=== PATIENT | male | born 1950 | race Caucasian/White ===

== ENCOUNTER 2024-03-01 18:29 | Observation (INO) | payer MEDICARE, OTHER, SELFPAY ==
[2024-03-01] VITALS (9 sets, daily range): BP systolic 138–175; BP diastolic 54–84; PULSE 78–86; BMI 28.7
[2024-03-01 14:38] LABS: % Basophils 0.5 % (0-2); % Eosinophils 1.8 % (0-6); % Immature Granulocytes 0.3 % (0-0.5); % Lymphocytes 22.5 % (20.5-51.1); % Monocytes 14.2 % (1.7-9.3); % Neutrophils 60.7 % (42.2-75.2); Absolute Eosinophils 0.1 10^3/uL (0-0.7); Absolute Lymphocytes 1.7 10^3/uL (1.2-3.4); Absolute Monocytes 1.1 10^3/uL (0.1-0.6); Absolute Neutrophils 4.5 10^3/uL (1.4-6.5); Hematocrit 37.3 % (39.0-52.0); Hemoglobin 13.4 g/dL (13.0-18.0); Mean Corp Hgb Conc. 35.9 g/dL (33.0-37.0); Mean Corpuscular Hgb 30.8 pg (27.0-31.0); Mean Corpuscular Volume 85.7 fL (80.0-94.0); Mean Platelet Volume 10.9 fL (7.4-10.4); Nucleated Red Blood Cells % 0 % (-); Platelet Count 213 10^3/uL (130-400); Red Blood Cell Count 4.35 10^6/uL (4.70-6.10); Red Cell Dist. Width 12.6 % (11.5-14.5); White Blood Cell Count 7.4 10^3/uL (4.8-10.8)
[2024-03-01 14:42] LABS: ALT (SGPT) 31 U/L (0-50); AST (SGOT) 29 U/L (17-59); Alkaline Phosphatase 51 U/L (38-126); Blood Urea Nitrogen 19 mg/dl (9-20); Calcium 9.8 mg/dl (8.4-10.2); Carbon Dioxide 22 mmol/L (22-30); Chloride 101 mmol/L (98-107); Glucose 101 mg/dl (70-99); Potassium 4.3 mmol/L (3.5-5.1); Sodium 135 mmol/L (135-145); Total Bilirubin 0.9 mg/dl (0.2-1.3); Total Protein 7.7 g/dl (6.3-8.2); eGFR > 60.00
[2024-03-01 14:53] LABS: Troponin I < 0.012 ng/ml
--- NOTE | 2024-03-01 15:18 | ED.GENMED ---
History of Present Illness
<Sugey Mora PA-C - Last Filed: 03/01/24 23:58>
General
Chief Complaint: Chest Pain
Source: patient
Exam Limitations: none
Time Seen by Provider: 03/01/24 15:16
Nursing documentation reviewed up to this point in time: agreed with
History of Present Illness
History of Present Illness:
Patient is a 74 year old male with history CAD s/p 2 stent placements 1 year ago and hypertension presenting for evaluation of exertional chest pain and shortness of breath. Patient states that over the past 3 to 4 days he has noticed worsening
chest pain and shortness of breath with exertion. Symptoms are noticed with very short distance of exertion. At the time of the symptoms he has also noticed headache, lightheadedness, and mild blurry vision. Patient states that the headache has
been somewhat constant over the past 4 days but describes it as a gradual onset headache and not any acute onset headache. Patient denies any associated fever, chills, nausea, or vomiting.
Patient does state that the symptoms do not seem exactly similar to episode when he required stent placements.
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
Past History
<Sugey Mora PA-C - Last Filed: 03/01/24 23:58>
Past History
ED Past Medical History: CAD, GERD, HTN and Other (Prediabetic, borderline cholesterol, anxiety, obstructive sleep apnea and uses CPAP)
ED Past Surgical History: Tonsilectomy; Negative Cardiac
Social History
Tobacco: Non-smoker
Alcohol: None
Drug: None
Personal:
Living: with family
Employment: Retired
Family History
Family History: Hypertension
Review of Systems
<Sugey Mora PA-C - Last Filed: 03/01/24 23:58>
Review of Systems
Allergies reviewed?: Yes
All Other Systems: ROS reviewed and negative except as documented in HPI and ROS
Phy Exam
<Sugey Mora PA-C - Last Filed: 03/01/24 23:58>
Physical Exam
Physical Exam:
Vitals: Hypertensive, otherwise vital signs stable. Afebrile
General: Patient is well appearing, no acute distress. Nontoxic
Skin: Warm and dry, no rashes or lesions
Head: Normocephalic, atraumatic
Eyes: Sclera nonicteric. EOMs intact. No nystagmus.
Throat: Protecting airway
Neck: Normal ROM, no cervical spine tenderness, no meningismus
Cardiac: Regular rate and rhythm, no murmurs. No tenderness noted to anterior chest wall.
Pulm: Normal respiratory effort, no wheezes, rales, rhonchi heard on exam.
Abdomen: Abdomen soft. Mild diffuse abdominal tenderness without rebound tenderness or guarding.
Extremities: No evidence of cyanosis or edema. Great distal pulses
Neuro: AAOx3. CN II-XII intact. No focal neurologic deficits.
Psychiatric: Normal affect.
Scores
<Sugey Mora PA-C - Last Filed: 03/01/24 23:58>
Heart Score for Chest Pain Patients
STEMI patient?: No
History: Moderately Suspicious
ECG: Normal
Age: >/= 65 years
Risk Factors: >/= 3 Risk Factors or History of CAD
Troponin: </= Normal Limit
Heart Score for Chest Pain Patients: 5
Heart Score Risk: 20.3% MACE over next 6 weeks
Course
<Sugey Mora PA-C - Last Filed: 03/01/24 23:58>
Orders/Labs/Results
Orders:
Orders
03/01/24 Breakfast
Sodium, 2 Gram
At Your Request: Full Participation
Low Sodium: Cholesterol Lowering
03/01/24 13:57
Electrocardiogram (*1) Urgent
Reason for Study: Chest Pain
EKG- Treatment ONCE
03/01/24 14:12
Complete Blood Count/With Diff Urgent
Comprehensive Metabolic Panel Urgent
Troponin I Urgent
03/01/24 15:41
0.9% Sodium Chloride 1000 ml [Nss] 1,000 ml IV BOLUS
Acetaminophen [Tylenol] 650 mg PO NOW STA
03/01/24 15:42
CR Chest - 2 Views Urgent
Comment:
Reason For Exam: exertional SOB
03/01/24 17:13
Troponin I Urgent
03/01/24 17:15
Electrocardiogram (*1) Urgent
Reason for Study: Chest Pain
03/01/24 18:08
Admit/Transfer Patient As Directed
Co-Sign Provider:
Level of Care: Observation services
Assign to:: Telemetry
Physician / Group: Mike
Diagnosis: Unstable Angina
Reason for Telemetry: Chest Pain syndromes
Date to Stop Telemetry: 03/03/24
Time to Stop Telemetry: 11:00
03/01/24 18:09
Code Status As Directed
Resuscitation Status: Full Code
03/01/24 20:02
Acetaminophen [Tylenol] 650 mg PO Q4HPRN PRN
Amlodipine [Norvasc] 5 mg PO BID
HydrALAZINE [Apresoline] 50 mg PO BID
Nitroglycerin Sublingual [Nitrostat (Sublingual)] 0.4 mg SL [id number] PRN
03/01/24 20:02
Echo 2D MMode Color/Doppler Routine
Reason for Study: chest pain, lower ext edema
Cardiology Consult: Che Washington
CARDIOLOGY CONSULT Routine
Consulting Provider: Che Washington
Was physician already notified: Yes
Activity As Directed
Activity Level: Out of Bed-Early Mobility
With Assistance
I&O [Intake/ Output] As Directed
Frequency: q12h
Vital Signs As Directed
Frequency: Per unit guidelines
Weight As Directed
Frequency: Daily
DX Deep Vein Thrombosis Video Routine
03/01/24 22:00
Tamsulosin [Flomax] 0.4 mg PO HS
03/01/24 22:17
Troponin I Routine
03/02/24 Breakfast
NPO
Allow oral meds: Yes
Allow clear liquids: 4hrs prior to procedure
NPO with Ice Chips: Yes
Comment: may have unrestricted clear liquid up to 4 hrs prior to scheduled procedure
Basic Metabolic Panel IN AM
Complete Blood Count/No Diff IN AM
Hgba1c [Glycohemoglobin (HgbA1c)] IN AM
Lipid Profile [Cardiovascular Evaluation] IN AM
Magnesium IN AM
03/02/24 08:00
Aspirin Chewable [Low Strength Aspirin] 81 mg PO DAILY
Eplerenone [Inspra] 25 mg PO DAILY
Famotidine [Pepcid] 40 mg PO DAILY
Linaclotide [Linzess] 145 mcg PO DAILY
Pantoprazole [Protonix] 40 mg PO DAILY
Valsartan [Diovan] 320 mg PO DAILY
03/02/24 18:00
Atorvastatin [Lipitor] 20 mg PO QPM
Enoxaparin Sodium [Lovenox] 40 mg SC QPM
03/03/24 11:00
DC Protocol for Telemetry ONCE
Abnormal Lab Results
03/01/24
14:12
RBC 4.35 L 10^6/uL
(4.70-6.10)
Hct 37.3 L %
(39.0-52.0)
MPV 10.9 H fL
(7.4-10.4)
Absolute Monos (auto) 1.1 H 10^3/uL
(0.1-0.6)
Monocytes % 14.2 H %
(1.7-9.3)
Glucose 101 H mg/dl
(70-99)
03/01/24 14:12
03/01/24 14:12
Vital Signs
Initial and Last Documented VS:
Initial Vital Signs
Temp Pulse Resp BP Pulse Ox
97.8 F 88 16 175/74 98
03/01/24 14:04 03/01/24 14:04 03/01/24 14:04 03/01/24 14:04 03/01/24 14:04
Last Documented Vital Signs
Temp Pulse Resp BP Pulse Ox
97.9 F 77 18 138/54 96
03/01/24 23:38 03/01/24 23:38 03/01/24 23:38 03/01/24 23:38 03/01/24 23:38
Eufemialt;Gabino Valdez, - Last Filed: 03/01/24 19:12>
Orders/Labs/Results
Orders:
Orders
03/01/24 Breakfast
Sodium, 2 Gram
At Your Request: Full Participation
Low Sodium: Cholesterol Lowering
03/01/24 13:57
Electrocardiogram (*1) Urgent
Reason for Study: Chest Pain
EKG- Treatment ONCE
03/01/24 14:12
Complete Blood Count/With Diff Urgent
Comprehensive Metabolic Panel Urgent
Troponin I Urgent
03/01/24 15:41
0.9% Sodium Chloride 1000 ml [Nss] 1,000 ml IV BOLUS
Acetaminophen [Tylenol] 650 mg PO NOW STA
03/01/24 15:42
CR Chest - 2 Views Urgent
Comment:
Reason For Exam: exertional SOB
03/01/24 17:13
Troponin I Urgent
03/01/24 17:15
Electrocardiogram (*1) Urgent
Reason for Study: Chest Pain
03/01/24 18:08
Admit/Transfer Patient As Directed
Co-Sign Provider:
Level of Care: Observation services
Assign to:: Telemetry
Physician / Group: Mike
Diagnosis: Unstable Angina
Reason for Telemetry: Chest Pain syndromes
Date to Stop Telemetry: 03/03/24
Time to Stop Telemetry: 11:00
03/01/24 18:09
Code Status As Directed
Resuscitation Status: Full Code
03/01/24 20:02
Acetaminophen [Tylenol] 650 mg PO Q4HPRN PRN
Amlodipine [Norvasc] 5 mg PO BID
HydrALAZINE [Apresoline] 50 mg PO BID
Nitroglycerin Sublingual [Nitrostat (Sublingual)] 0.4 mg SL [id number] PRN
03/01/24 20:02
Echo 2D MMode Color/Doppler Routine
Reason for Study: chest pain, lower ext edema
Cardiology Consult: Che Washington
CARDIOLOGY CONSULT Routine
Consulting Provider: Che Washington
Was physician already notified: Yes
Activity As Directed
Activity Level: Out of Bed-Early Mobility
With Assistance
I&O [Intake/ Output] As Directed
Frequency: q12h
Vital Signs As Directed
Frequency: Per unit guidelines
Weight As Directed
Frequency: Daily
DX Deep Vein Thrombosis Video Routine
03/01/24 22:00
Tamsulosin [Flomax] 0.4 mg PO HS
03/01/24 22:17
Troponin I Routine
03/02/24 Breakfast
NPO
Allow oral meds: Yes
Allow clear liquids: 4hrs prior to procedure
NPO with Ice Chips: Yes
Comment: may have unrestricted clear liquid up to 4 hrs prior to scheduled procedure
Basic Metabolic Panel IN AM
Complete Blood Count/No Diff IN AM
Hgba1c [Glycohemoglobin (HgbA1c)] IN AM
Lipid Profile [Cardiovascular Evaluation] IN AM
Magnesium IN AM
03/02/24 08:00
Aspirin Chewable [Low Strength Aspirin] 81 mg PO DAILY
Eplerenone [Inspra] 25 mg PO DAILY
Famotidine [Pepcid] 40 mg PO DAILY
Linaclotide [Linzess] 145 mcg PO DAILY
Pantoprazole [Protonix] 40 mg PO DAILY
Valsartan [Diovan] 320 mg PO DAILY
03/02/24 18:00
Atorvastatin [Lipitor] 20 mg PO QPM
Enoxaparin Sodium [Lovenox] 40 mg SC QPM
03/03/24 11:00
DC Protocol for Telemetry ONCE
Abnormal Lab Results
03/01/24
14:12
RBC 4.35 L 10^6/uL
(4.70-6.10)
Hct 37.3 L %
(39.0-52.0)
MPV 10.9 H fL
(7.4-10.4)
Absolute Monos (auto) 1.1 H 10^3/uL
(0.1-0.6)
Monocytes % 14.2 H %
(1.7-9.3)
Glucose 101 H mg/dl
(70-99)
03/01/24 14:12
03/01/24 14:12
Vital Signs
Initial and Last Documented VS:
Initial Vital Signs
Temp Pulse Resp BP Pulse Ox
97.8 F 88 16 175/74 98
03/01/24 14:04 03/01/24 14:04 03/01/24 14:04 03/01/24 14:04 03/01/24 14:04
Last Documented Vital Signs
Temp Pulse Resp BP Pulse Ox
97.9 F 77 18 138/54 96
03/01/24 23:38 03/01/24 23:38 03/01/24 23:38 03/01/24 23:38 03/01/24 23:38
<Sugey Mora PA-C - Last Filed: 03/01/24 23:58>
MDM/Problems Addressed
Differential Diagnosis Includes:
Not limited to: GERD, unstable angina, NSTEMI, STEMI, COPD, CHF
MDM/Problems Addressed:
74-year-old male with history hypertension, CAD s/p stent placement presenting with exertional chest pain and shortness of breath over the past 3 to 4 days. Symptoms noticed with very short distances. Mild associated headache, blurry vision,
lightheadedness. Patient's vital signs are stable upon arrival to the emergency department, although mildly hypertensive. Physical exam as above. Patient is well-appearing, in no apparent distress. Heart regular rate and rhythm, lungs clear
bilaterally. He does have some mild diffuse abdominal tenderness which she is following with a GI doctor�he had a CT performed yesterday at [facility] try to obtain results. No edema of lower legs. No obvious bruises or rashes. Labs
obtained in triage noted. No clinically significant abnormalities. Initial troponin is negative. Patient does report most recent bout of symptoms while he was in the waiting room getting up to go to the bathroom. Will repeat troponin to ensure
not rising. EKG shows no acute ischemic changes. Chest x-ray without any signs of acute cardiopulmonary process.
Although workup here has been mostly negative at this point�given patient's cardiac history and stent placement 1 year ago symptoms are concerning for unstable angina. Did discuss with cardiology who recommended admission to hospital with
cardiology consult. Discussed with hospitalist. Patient be admitted for further workup.
Chronic conditions affecting care:
CAD, hypertension, GERD
Acute Exacerbation and/or Progression of Chronic Illness:
Unstable angina
<Sugey Mora PA-C - Last Filed: 03/01/24 23:58>
*Radiology
Radiology exam reviewed: preliminary read by ED provider and radiology read reviewed
*Pulse Oximetry
Patient hypoxic: no
*EKG
Interpreted by ED Provider?: Yes
EKG Intrepretation Date: 03/01/24
Interpretation: normal
Comparison EKG: changes noted
Heart Rate: 88
Rate: normal
Rhythm: sinus
QRS Pattern: normal QRS
Ischemia: no ischemia
*Institute Director Interpretation
Rate: normal
Interpretation: normal
Heart Rate: 84
Rhythm: sinus
*Critical Care Note
Total Time (30-74mins, 75-104mins- exclusive of procedures): Not Applicable
<Sugey Mora PA-C - Last Filed: 03/01/24 23:58>
Patient Management
Discussion with other providers: Hospitalist and Area Development Manager (Cardiology)
Escalation/DeEscalation of care consider admission/obs:
Admission for further workup
ED Attending Note
<Sugey Mora PA-C - Last Filed: 03/01/24 23:58>
-
Portions of this chart may have been created with voice recognition software.� Occasional wrong word or��sound alike� substitutions may have occurred due to the inherent limitations of voice recognition software.
<Gabino Valedz, - Last Filed: 03/01/24 19:12>
ED Attending Note
Patient seen and examined by attending physician: Yes
I performed the substantive portion of visit, reviewed & personally made and approve the management plan that is documented in note by myself or LIANNE.: Yes
ED Attending Note:
I agree with Joann's note
Patient presents complaining of chest pain. Pain occurs with minimal exertion. He does have history of coronary artery disease. Patient had a cardiac catheterization with stent 1 year ago for a NSTEMI. Patient was in his usual state of health
until about 3 to 4 days ago when he began having pain with exertion. Pain is not the same as what he experienced with his [place] but similar. He describes it as a person sitting on his chest. He does have shortness of breath with it. Last episode of
chest pain was in the waiting room when he walked to the bathroom a few feet. He has had episodes of pain without exertion.
General: Awake, Alert, Oriented X3. No acute distress.
Vitals: unremarkable
Head: Atraumatic
Eyes: Pupils equal, EOMI
Throat: Airway intact, no exudates
Neck: Trachea midline
Lungs: Clear and equal b/l
Heart: Regular rate, no murmurs
Abd: Soft, Nontender, No pulsatile mass
Skin: Warm, dry, no rash
Extremities: pulses equal b/l, no edema
EKG: No acute ischemic changes.
Patient's presentation is concerning for unstable angina. Joann discussed the patient's presentation with cardiology. Second troponin pending. Plan is to admit with cardiology consult
Discharge Plan
Departure
Patient Disposition: Admit
Date of Disposition: 03/01/24
Time of Disposition: 17:19
Presentation/result/management discussed w/ accepting MD/DO: Hospitalist
Discharge Problem:
Angina pectoris, unstable
Interventions
Interventions:
*Risk Screen - Suicide Last Done: 03/01/24 20:58
*General Assessment Last Done: 03/01/24 15:31
*Neglect/Abuse Screening Last Done: 03/01/24 15:31
ED- Fall Risk Assessment Last Done: 03/01/24 15:31
*ED COVID-19 Vaccine History Last Done: 03/01/24 20:58
*Nursing Disposition Last Done: 03/01/24 21:02
ED- Cardiac Assessment Last Done: 03/01/24 15:31
Discharge Date and Time
Discharge Date/Time: 03/01/24 21:02
[2024-03-01] MEDS: TYLENOL 650 MG PO (16:19)
[2024-03-01] MEDS: NSS 1000 IV (16:20)
--- NOTE | 2024-03-01 16:56 | CON.CAR ---
Addendum entered and electronically signed by Che Washington DO 03/01/24 18:57:
I saw and examined the patient.
[facility] [employer]'s note was reviewed and I agree with the note.
Comment: Patient seen and examined in ED bed 20. He is well-known to Dr. Yonis Horne, [facility] cardiology. Lupillo is a 74-year-old gentleman with history of hypertension requiring multi agent regimen, type 2 diabetes mellitus, dyslipidemia, obstructive
sleep apnea, and known coronary artery disease. He also has a history of BPH. He has had PCI to his RCA x 2 in February 2023 in the setting of a non-STEMI. He reports new left-sided chest pain starting over the weekend with minimal exertion which has
progressively worsened throughout the week. He reports having chest pain walking from triage to ER hospital bed as well as for current chest pain ambulating to the restroom. Currently chest pain-free. Home systolic blood pressures reported in the
range of 130 to 140 mmHg. He denies recent interruption of aspirin and is compliant with his medications. No recent URI symptoms or cough. He has had several months of abdominal distention, constipation and abdominal pain followed by GI at .
[facility] and had a CT of the abdomen pelvis yesterday. Results of the study are unknown and I have asked the ED to obtain results for our review.
General: No acute distress, AAOX3
Neck: Negative JVD
Heart: Regular, Negative S3 positive S1/S2, Negative S4, No murmur
Lungs: CTA b/l, negative wheezes/rales/rhonchi
Abd: Positive BS, NT/ND, neg rebound/rigidity/guarding
Ext: Negative cyanosis/clubbing/edema
Neuro: nonfocal
Plan:
Chest pain concerning for angina with known coronary artery disease
-Discussed case with Dr. Horne who says patient has ongoing chronic episodes of chest pain.
-Twelve-lead EKG nonischemic
-Cardiac troponin so far undetectable
-Will continue current medical therapy including aspirin. If recurrent chest pain or abnormal cardiac troponin we will start IV heparin
-N.p.o. after midnight. If troponin remains undetectable we will proceed with exercise nuclear stress test. If troponin abnormal we will proceed with cardiac catheterization with Dr. Horne
-Repeat 2D echocardiogram in the morning
Hypertension, uncontrolled
-Will add beta-florencia to current medical therapy and if blood pressures remain elevated consider adding Imdur or Ranexa for possible microvascular disease
-Goal normotension
Type 2 diabetes mellitus
-Goal normoglycemia
-Consider the addition of Jardiance
-Check hemoglobin A1c
Dyslipidemia
-Check fasting lipid profile
Obstructive sleep apnea on CPAP�continue
Abdominal pain constipation with normal hemoglobin
-Follows with [facility] with plan for colonoscopy in the next couple of months. Recent endoscopy reportedly okay, unconfirmed
-Will obtain CT abdomen pelvis recently done at [facility] yesterday for review
Case discussed with Dr. Horne
Will follow with you
Original Note:
Consultation
Consultation Request
Date/Time Consultation Performed: 03/01/24
Requesting Provider: Sugey Mora PA-C
Performing Provider: Glenda Crawford PA-C for Dr. Washington
Reason for Consultation: CP
Medical History
-
Chief Complaint: CP
History of Present Illness:
Patient is a 73 yo M with PMH of HTN, GERD, prediabetes, HOSSEIN. Followed by Dr. Horne of [facility]IAT[facility]. He had exertional chest pressure and USA resulting in RCA PCI x2 03/01/23. He then presented back to 03/05 with recurrent CP. Underwent Lexiscan MIBI
03/07/2023 without significant ischemia. It was felt that his symptoms of chest pain may have been related to marked hypertension. Patient reports chest discomfort and dyspnea on exertion over the last 3 to 4 days as well as associated headache and
lightheadedness. Symptoms somewhat different than prior symptoms resulting in stent placement in 2022. Initial trop negative. Cardiology consulted for evaluation.
PMH:
RCA PCI x2 03/01/23
HTN
GERD
prediabetes
HOSSEIN
Family history of CAD
Former smoker
Past Medical History
Past Medical History: Other (in HPI)
Social History
Tobacco: Former Smoker
Alcohol: Occasional
Employment: Retired
Family History
Family History: CAD (in father)
Allergies / Home Medications
Allergy/AdvReac Type Severity Reaction Status Date / Time
No Known Allergies Allergy Verified 03/01/24 14:07
�Medication �Instructions �Recorded �Confirmed �Type
amlodipine 5 mg tablet 5 mg PO BID Blood Pressure 02/28/23 03/05/23 History
eplerenone 25 mg tablet 25 mg PO DAILY Lung/Breathing 02/28/23 03/05/23 History
Issues
famotidine 40 mg tablet 40 mg PO DAILY Gastrointestinal 02/28/23 03/05/23 History
Issue
pantoprazole 40 mg tablet,delayed 40 mg PO DAILY Gastrointestinal 02/28/23 03/05/23 History
release (Protonix) Issue ##0
valsartan 320 mg tablet 320 mg PO DAILY Blood Pressure 02/28/23 03/05/23 History
aspirin 81 mg chewable tablet 81 mg PO DAILY 30 days #30 tabs 03/02/23 03/05/23 Rx
atorvastatin 20 mg tablet 20 mg PO QPM #30 tabs 03/02/23 03/05/23 Rx
clopidogrel 75 mg tablet 75 mg PO DAILY #30 tabs 03/02/23 03/05/23 Rx
hydralazine 50 mg tablet 50 mg PO BID #60 tabs 03/02/23 03/05/23 Rx
Focus Factor 1 cap PO DAILY 03/05/23 03/05/23 History
lutein 20 mg capsule 20 mg PO DAILY Supplement 03/05/23 03/05/23 History
milk thistle 175 mg tablet 175 mg PO DAILY Supplement 03/05/23 03/05/23 History
omega 7-svh-kty-fish oil 1,000 mg 1 cap PO DAILY Supplement 03/05/23 03/05/23 History
(120 mg-180 mg) capsule (Fish Oil)
pantothenic acid (vit B5) 250 mg 250 mg PO DAILY Supplement 03/05/23 03/05/23 History
tablet
therapeutic multivitamin 1 tab PO DAILY Supplement 03/05/23 03/05/23 History
vitamin B complex 1 cap PO DAILY Supplement 03/05/23 03/05/23 History
metoprolol succinate 25 mg 25 mg PO BID #60 tabs 03/07/23 Rx
tablet,extended release 24 hr
Review of Systems
-
History Source: Patient
All other systems: Negative unless noted
Physical Exam
Vital Signs
Temp Pulse Resp BP Pulse Ox
97.8 F 85 24 159/84 97
03/01/24 14:04 03/01/24 15:30 03/01/24 15:30 03/01/24 15:27 03/01/24 15:30
Lab Results
03/01/24 14:12
03/01/24 14:12
Troponin I < 0.012 ng/ml 03/01/24 14:12
Impression / Plan
-
Primary Polisher And Sander: Dr. Horne of PSY[facility]IAT[facility]
Assessment:
Presentation with CP
Negative trop x1
CAD s/p RCA PCI x2 03/01/23
HTN
GERD
prediabetes
HOSSEIN
Family history of CAD
Former smoker
ECHO 03/05/2023: EF 70 to 75%, mild concentric LVH, hyperdynamic LV, mildly dilated right atrium, mild TR, PAP 42 mmHg
Plan:
-Patient presents with chest pain in setting of prior CAD with RCA PCI x 2 02/2023.
-Troponin negative x 1. Trend to peak
-EKG sinus rhythm without acute ischemic changes
-Obtain records from PSYCHIATRIC in a.m.
-If trops remain negative, would consider for nuclear stress testing in a.m. last stress test from 02/2023 was without evidence of acute ischemia. if trops become positive, consider for cath in AM
-last echo with results as above
-likely needs improved BP control, uptitrate as able
Data Reviewed
-
EKG: Tracing Personally Visualized and interpreted
Medical Tests (Nuc Med, Echo etc): Report Reviewed by me
Labs: Labs Reviewed by me
Old Records: Reviewed
[2024-03-01 17:48] LABS: Troponin I < 0.012 ng/ml
--- NOTE | 2024-03-01 18:08 | HPS.HSE ---
Family Physician
-
Family Physician: Kamari Robles
Chief Complaint
-
Chest Pain
History of Present Illness
This is a 74 year old male with past medical history of coronary artery disease, hypertension, hyperlipidemia and prediabetes who presents to the emergency department with chest pain, dizziness, and mild shortness of breath. The patient reports his
symptoms started 3 months ago intermittently but notes that as time passed, his symptoms have gotten worse. He notes that he started experiencing worsened chest pain with exertion, dyspnea, dizziness, and lightheadedness this past week. He reports
his symptoms were much worse today including difficulty concentrating, blurry vision, and headache, prompting him to present to the emergency department today. The patient states this episode was similar to when he had 2 stents placed 02/2023. He
admits to a baseline level of chest discomfort that he rates 3/10 but notes that with exertion, his chest pain is 9-10/10. He denies fever, sweats, and chills.
Medical History
Past Medical History
Past Medical History: Reports Other
Additional Past Medical History:
Coronary Artery Disease s/p Stent in February 2023
Essential Hypertension
Hyperlipidemia
Diabetes Mellitus, Type II
Anxiety
GERD
BPH
Obstructive Sleep Apnea
Past Surgical History: Reports None
Social History
Tobacco: Former Smoker
Family History
Family History: Not pertinent
Allergies / Home Medications
Allergies reflects when Allergies were last updated in [facility].
Home Medications with original date entered in [facility]
Allergy/Medication List:
Allergies
Allergy/AdvReac Type Severity Reaction Status Date / Time
No Known Allergies Allergy Verified 03/01/24 14:07
Home Medications
amlodipine 5 mg tablet 5 mg PO BID Blood Pressure 02/28/23
eplerenone 25 mg tablet 25 mg PO DAILY Lung/Breathing Issues 02/28/23
famotidine 40 mg tablet 40 mg PO DAILY Gastrointestinal Issue 02/28/23
pantoprazole 40 mg tablet,delayed release (Protonix) 40 mg PO DAILY Gastrointestinal Issue ##0 02/28/23
valsartan 320 mg tablet 320 mg PO DAILY Blood Pressure 02/28/23
aspirin 81 mg chewable tablet 81 mg PO DAILY 30 days #30 tabs 03/02/23
hydralazine 50 mg tablet 50 mg PO BID #60 tabs 03/02/23
Focus Factor 1 cap PO DAILY 03/05/23
lutein 20 mg capsule 20 mg PO DAILY Supplement 03/05/23
milk thistle 175 mg tablet 175 mg PO DAILY Supplement 03/05/23
omega 5-imo-gxm-fish oil 1,000 mg (120 mg-180 mg) capsule (Fish Oil) 1 cap PO DAILY Supplement 03/05/23
pantothenic acid (vit B5) 250 mg tablet 250 mg PO DAILY Supplement 03/05/23
therapeutic multivitamin 1 tab PO DAILY Supplement 03/05/23
vitamin B complex 1 cap PO DAILY Supplement 03/05/23
Zeaxatine 4 mg PO DAILY 03/01/24
alfuzosin 10 mg tablet,extended release 24 hr 10 mg PO HS 03/01/24
linaclotide 145 mcg capsule (Linzess) 145 mcg PO DAILY 03/01/24
Review of Systems
-
A 12 point ROS was completed and negative except as noted: Yes
Constitutional: Denies Fever or Chills
Respiratory: Denies Cough
Cardiac: Reports Chest Pain
Abdomen/GI: Denies Abdominal Pain, Nausea, Vomiting or Diarrhea
Physical Exam
Vital Signs
Vital Signs
Temp Pulse Resp BP Pulse Ox
97.8 F 76 19 151/70 96
03/01/24 14:04 03/01/24 16:30 03/01/24 16:30 03/01/24 16:00 03/01/24 16:30
Physical Exam
General: Comfortable and Conversant
HEENT: Anicteric and Moist mucous membranes
Respiratory: Clear and Non Labored Respirations
Cardiac: S1/S2 and Regular Rhythm
GI: Soft and Non Tender
Rectal: Deferred by Provider
Musculoskeletal: No Clubbing, No Cyanosis and Other (+1 pitting edema bilateral lower extremities)
Skin: Warm and Dry
Neuro: Awake, Alert, Oriented and Nonfocal/grossly intact
Psych: Calm
Laboratory Results
-
03/01/24 14:12
03/01/24 14:12
Laboratory Results
Total Bilirubin 0.9 mg/dl (0.2-1.3) 03/01/24 14:12
AST 29 U/L (17-59) 03/01/24 14:12
ALT 31 U/L (0-50) 03/01/24 14:12
Alkaline Phosphatase 51 U/L (38-126) 03/01/24 14:12
Troponin I < 0.012 ng/ml 03/01/24 17:13
Data Reviewed
-
Lab Data: Labs Reviewed by me
Impression/Plan
-
Chest Pain, suspect Unstable Angina
-Consult Cardiology
-Check third troponin later this evening
-NPO after midnight for stress test vs cath in AM
-Check Echo
-Continue aspirin
-Add SL Nitro PRN
Essential Hypertension
-Continue amlodipine, eplerenone, hydralazine and valsartan
Hyperlipidemia
-Continue atorvastatin
Diabetes Mellitus, Type II
-Patient is not on any meds as outpatient
-Check HgbA1c
GERD
-Continue famotidine and Protonix
BPH
-Continue alfuzosin
DVT proph: Lovenox
Code Status: Full Code
--- NOTE | 2024-03-01 18:14 | W.PN.UPDATE ---
Update Note
Progress Note Update
This is an addendum to the H&P written by WLILIAM Grubbs on 03/01/2024. Patient seen and examined independently with PA.
74-year-old male past medical history of CAD with stents, hypertension GERD, prediabetes, obstructive sleep apnea presenting with primarily exertional chest pressure and shortness of breath has become more progressive over the past few days also
associate with headache, lightheadedness and sweating.
Presentation concerning for possible unstable angina. Labs unremarkable. Troponin negative x 2 so far. EKG shows normal sinus rhythm. trend troponins. N.p.o. past midnight for nuclear stress testing in the morning if troponins negative versus
possible catheterization if troponins become positive. Check echo.
[2024-03-01] MEDS: NORVASC 5 MG PO (21:15)
[2024-03-01] MEDS: APRESOLINE 50 MG PO (21:15)
[2024-03-01] MEDS: TOPROL XL PO (21:15)
[2024-03-01] MEDS: FLOMAX 0.400000000000000022 MG PO (21:16)
[2024-03-01 22:45] LABS: Troponin I < 0.012 ng/ml
[2024-03-02 01:11] VITALS: BMI 29.3
--- NOTE | 2024-03-02 02:32 | PTCARENOTE ---
Pt admitted to unit from ED. Pt ambulated self with nursing staff to bed. AAXO3. Pt denies chest pain, SOB, and difficulty breathing. Pt oriented to room with call jhaveri in reach. Plan of care ongoing.
~22:30 Reported chest pain after ambulating back to bed from bathroom. Pt reports chest pain resolved. Urinal and bedside commode at bedside. Call jhaveri in reach. Plan of care ongoing.
[2024-03-02 03:19] VITALS: BP 140/60
[2024-03-02 07:00] VITALS: BP 139/63
[2024-03-02 07:32] LABS: Hematocrit 38.3 % (39.0-52.0); Hemoglobin 12.9 g/dL (13.0-18.0); Mean Corp Hgb Conc. 33.7 g/dL (33.0-37.0); Mean Corpuscular Hgb 30.4 pg (27.0-31.0); Mean Corpuscular Volume 90.3 fL (80.0-94.0); Mean Platelet Volume 10.5 fL (7.4-10.4); Platelet Count 188 10^3/uL (130-400); Red Blood Cell Count 4.24 10^6/uL (4.70-6.10); Red Cell Dist. Width 12.8 % (11.5-14.5); White Blood Cell Count 6.2 10^3/uL (4.8-10.8)
[2024-03-02 07:54] LABS: Blood Urea Nitrogen 16 mg/dl (9-20); Calcium 9.5 mg/dl (8.4-10.2); Carbon Dioxide 22 mmol/L (22-30); Chloride 105 mmol/L (98-107); Estimated Creatinine Clearance 81 ml/min; Glucose 122 mg/dl (70-99); HDL Cholesterol 48 mg/dl; LDL Cholesterol, Calculated 133 mg/dl; Magnesium 2.3 mg/dl (1.6-2.3); Potassium 4.5 mmol/L (3.5-5.1); Sodium 136 mmol/L (135-145); Total Cholesterol 207 mg/dl (50-199); Triglyceride 134 mg/dl (10-149); Very Low Density Lipoprotein 26 mg/dl (0-30); eGFR > 60.00
[2024-03-02 08:21] LABS: TSH Reflex To Free T4 2.08 uIU/ml (0.47-4.68)
[2024-03-02] MEDS: PROTONIX 40 MG PO (08:36)
[2024-03-02] MEDS: TOPROL XL 25 MG PO (08:36)
[2024-03-02] MEDS: DIOVAN 320 MG PO (08:36)
[2024-03-02] MEDS: INSPRA 25 MG PO (08:36)
[2024-03-02] MEDS: LOW STRENGTH ASPIRIN 81 MG PO (08:36)
[2024-03-02] MEDS: NORVASC 5 MG PO (08:36)
[2024-03-02] MEDS: PEPCID 40 MG PO (08:36)
[2024-03-02] MEDS: APRESOLINE 50 MG PO (08:37)
[2024-03-02 10:07] LABS: Glycohemoglobin (HgbA1c) 6.1 % (4.0-5.6)
[2024-03-02] MEDS: LEXISCAN 0.400000000000000022 MG IV (10:47)
--- NOTE | 2024-03-02 12:21 | W.PN.CARDCBS ---
Addendum entered and electronically signed by Che Washington, 03/02/24 16:45:
Patient reports fatigue with BB and has only tried lipitor with myalgias. Willing to try another statin and we also discussed option for PCSK9 inh if he does not tolerate statins. Will stop BB. He has never tried Imdur or Ranexa. Will add Imdur 30mg
daily to current medical regime.
Addendum entered and electronically signed by Che Washington, 03/02/24 15:28:
Lexiscan nuclear stress test without definite evidence of ischemia or scar. LV ejection fraction normal. 2D echocardiogram with normal biventricular size and systolic function with grade 1 diastolic dysfunction and mild pulmonary hypertension. No
significant change from February 2023.
Original Note:
Today's Communication / Plan
-
Lexiscan nuclear stress test
Impression / Plan
-
Primary Patient Appointment Coordinator: Dr. Horne of [facility]
Assessment:
Presentation with CP
Negative trop x1
CAD s/p RCA PCI x2 03/01/23
HTN
GERD
prediabetes
HOSSEIN
Family history of CAD
Former smoker
ECHO 03/05/2023: EF 70 to 75%, mild concentric LVH, hyperdynamic LV, mildly dilated right atrium, mild TR, PAP 42 mmHg
Plan:
Chest pain with known CAD
-Patient presents with chest pain in setting of prior CAD with RCA PCI x 2 02/2023.
-Troponin serially undetectable
-EKG sinus rhythm without acute ischemic changes
-Lexiscan nuclear stress test this morning
-Continue aspirin.
-Lipid profile suboptimal and not currently on lipid-lowering therapy. Total cholesterol 207, LDL 133, HDL 48, triglycerides 134. Yesterday 'no known drug allergies were reported' however now he is reporting an unknown allergy to atorvastatin.
Will discuss previous statin trials and possible reactions. If patient is unable to take statin would have him discuss PCSK9 inhibitors with his outpatient surgical services tech. Goal LDL ideally less than 70 mg/dL
-Blood pressures improved with addition of metoprolol succinate.
-Pending stress test could also consider addition of Imdur or Ranexa for possible microvascular ischemia
Prediabetes with hemoglobin A1c 6.1%
-Goal normoglycemia
-Can consider addition of Jardiance 10 mg daily
HOSSEIN on CPAP�continue
Case and plan reviewed with patient's outpatient surgical services tech, Dr. Horne.
Progress Note - Patient Appointment Coordinator
Subjective
Date of Service: March 02, 2024
Seen and examined prior to stress test. No chest pain.
Objective
Labs:
03/02/24 07:06
03/02/24 07:06
Labs
Hgb 12.9 g/dL (13.0-18.0) L 03/02/24 07:06
Hct 38.3 % (39.0-52.0) L 03/02/24 07:06
Plt Count 188 10^3/uL (130-400) 03/02/24 07:06
Sodium 136 mmol/L (135-145) 03/02/24 07:06
Potassium 4.5 mmol/L (3.5-5.1) 03/02/24 07:06
BUN 16 mg/dl (9-20) 03/02/24 07:06
Creatinine 0.8 mg/dL (0.7-1.3) 03/02/24 07:06
Glucose 122 mg/dl (70-99) H 03/02/24 07:06
Troponins
03/01/24 03/01/24 03/01/24
14:12 17:13 22:17
Troponin I < 0.012 < 0.012 < 0.012
Vital Signs and I&O:
Vital Signs
Temp Pulse Resp BP Pulse Ox
97.9 F 57 14 139/63 95
03/02/24 07:00 03/02/24 07:00 03/02/24 07:00 03/02/24 07:00 03/02/24 07:00
Vital Signs
Temp Pulse Resp BP Pulse Ox
97.9 F 57 14 139/63 95
03/02/24 07:00 03/02/24 07:00 03/02/24 07:00 03/02/24 07:00 03/02/24 07:00
Physical Exam
Physical Exam
Well appearing, no acute distress
RRR, Nl S1 and S2, no oS3 or S$, 09/17 AHSM, no rubs
Lungs are CTA b/l
Abd S/NT/ND/+ BS
Ext no c/c/e
neuro grossly non focal
[2024-03-02 12:27] VITALS: BP 167/73
[2024-03-02 15:14] VITALS: BP 134/18
--- NOTE | 2024-03-02 15:22 | W.PN.HOSP.TC ---
Today's Communication/Plan
-
Discharge if stress test negative
Assessment / Plan
Assessment / Plan
Chest Pain, suspect Unstable Angina
-Consult Cardiology
-Negative troponin
-Echo done today shows:
Normal biventricular systolic function without regional wall motion
abnormality.
Mild to moderate left ventricular hypertrophy
Left ventricular ejection fraction by volumetric assessment 60-65%
Grade 1 diastolic dysfunction with increased left atrial pressure
Mildly dilated left atrium
Trace mitral regurgitation
Trace tricuspid regurgitation
Trileaflet, mildly sclerotic aortic valve without stenosis or regurgitation
Estimated pulmonary artery pressure of 35-40 mmHg. Assuming a right atrial
pressure of 3 mmHg.
No pericardial effusion
Compared to prior study dated 03/05/2023, no significant change
Stress test done today, results pending
Follows cardiology recommended
Essential Hypertension
-Continue amlodipine, eplerenone, hydralazine and valsartan
Hyperlipidemia
-Continue atorvastatin
Diabetes Mellitus, Type II/Prediabetes
-Patient is not on any meds as outpatient
- HgbA1c 6.1
-Advised on diet and exercise
GERD
-Continue famotidine and Protonix
BPH
-Continue alfuzosin
DVT proph: Lovenox
Code Status: Full Code
Anticipated Discharge: Today
Subjective/Interval History
-
Date of Service: March 02, 2024
Patient seen and examined at bedside, denies any chest pain or shortness of breath, no abdominal pain, no nausea, no vomiting, no diarrhea or constipation.
Status post echo and stress test today
Follows cardiology recommendations.
Objective Data
-
Labs:
Laboratory Results
03/02/24
07:06
WBC 6.2
Hgb 12.9 L
Hct 38.3 L
Plt Count 188
Sodium 136
Potassium 4.5
Chloride 105
Carbon Dioxide 22
BUN 16
Creatinine 0.8
Glucose 122 H
Calcium 9.5
Vital Signs:
Vital Signs
Temp Pulse Resp BP Pulse Ox
97.3 F 67 18 134/18 98
03/02/24 15:14 03/02/24 15:14 03/02/24 15:14 03/02/24 15:14 03/02/24 15:14
Physical Exam
-
General: Well Developed and No Apparent Distress
HEENT: Normocephalic, Atraumatic and Moist Mucous Membranes
Respiratory: Clear to Auscultation
Cardiac: Regular Rhythm and S1/S2; Negative Murmur, Rub or Gallop
GI: Soft, Nontender, Nondistended and Normal Bowel Sounds; Negative Organomegaly
Rectal: Deferred by Provider
Musculoskeletal: No Clubbing, No Cyanosis and No Edema
Skin: Negative Rash
Neuro: Nonfocal/Grossly Intact
--- NOTE | 2024-03-02 15:46 | CM ---
Patient seen bedside.
IA completed.
Patient lives alone.
Independent prior to admission without assoistive devices.
patient drives.
[facility] form reviewed and signed.
PCP: Dr Robles
Pharmacy: [facility]
Plan: home no needs.
--- NOTE | 2024-03-02 16:11 | W.DCSUMMARY ---
Discharge Summary
Discharge Data
Date of Admission: 03/01/24
Date of Discharge: 03/02/24
Total time spent discharging patient (in min): 35
-
Pending Results: No
Hospital Course
Patient admitted with chest pain, negative troponin, negative stress test and normal cardiac
Will be discharged today
Chest Pain, suspect Unstable Angina
-Consult Cardiology
-Negative troponin
-Echo done today shows:
Normal biventricular systolic function without regional wall motion
abnormality.
Mild to moderate left ventricular hypertrophy
Left ventricular ejection fraction by volumetric assessment 60-65%
Grade 1 diastolic dysfunction with increased left atrial pressure
Mildly dilated left atrium
Trace mitral regurgitation
Trace tricuspid regurgitation
Trileaflet, mildly sclerotic aortic valve without stenosis or regurgitation
Estimated pulmonary artery pressure of 35-40 mmHg. Assuming a right atrial
pressure of 3 mmHg.
No pericardial effusion
Compared to prior study dated 03/05/2023, no significant change
Stress test done today, results pending
Follows cardiology recommended
Essential Hypertension
-Continue amlodipine, eplerenone, hydralazine and valsartan
Hyperlipidemia
-Continue atorvastatin
Diabetes Mellitus, Type II/Prediabetes
-Patient is not on any meds as outpatient
- HgbA1c 6.1
-Advised on diet and exercise
GERD
-Continue famotidine and Protonix
BPH
-Continue alfuzosin
DVT proph: Lovenox
Code Status: Full Code
Anticipated Discharge: Today
Discharge Plan
-
Patient Disposition: Home (Routine Discharge)
Discharge Diagnosis/Procedures: Chest pain
Diet: Diabetic, Carb Controlled
Activity: No restrictions
Driving Restrictions: As prior to admission
Referrals:
Che Washington DO [Active] - in two to three weeks
Kamari Robles MD [Family Provider] -
Prescriptions:
New
isosorbide mononitrate 30 mg Tablet Extended Release 24 Hr
30 mg PO DAILY Qty: 30 0RF
rosuvastatin 20 mg Tablet
20 mg PO QPM Qty: 30 0RF
Continued
famotidine 40 mg Tablet
40 mg PO DAILY
amlodipine 5 mg Tablet
5 mg PO BID
pantoprazole [Protonix] 40 mg Tablet,Delayed Release (Dr/Ec)
40 mg PO DAILY Qty: 0
valsartan 320 mg Tablet
320 mg PO DAILY
eplerenone 25 mg Tablet
25 mg PO DAILY
aspirin 81 mg Tablet,Chewable
81 mg PO DAILY 30 Days Qty: 30 0RF
hydralazine 50 mg Tablet
50 mg PO BID Qty: 60 0RF
milk thistle 175 mg Tablet
175 mg PO DAILY
therapeutic multivitamin Tablet
1 tab PO DAILY
pantothenic acid (vit B5) 250 mg Tablet
250 mg PO DAILY
vitamin B complex Capsule
1 cap PO DAILY
lutein 20 mg Capsule
20 mg PO DAILY
omega 7-zhy-foy-fish oil [Fish Oil] 1,000 mg (120 mg-180 mg) Capsule
1 cap PO DAILY
Focus Factor
1 cap PO DAILY
alfuzosin 10 mg tablet extended release 24 hr
10 mg PO HS
Linzess 145 mcg capsule
145 mcg PO DAILY
Zeaxatine
4 mg PO DAILY
Discharge Orders:
Discharge Patient (As Directed); Ordered 03/02/24
Ordered By: Bernadette Vasquez
Discharge Date and Time
Print Language: GUAMANIAN
[2024-03-02] MEDS: CRESTOR 20 MG PO (17:15)
== END 2024-03-02 18:02 | disposition home or self-care (01) ==
LOC: 4 WEST ACU 18:29
PROVIDERS: Physician Assistant; Physician Assistant Medical; ADMITTING PHYSICIAN Hospitalist; ATTENDING PHYSICIAN General Practice; CONSULT PHYSICIAN Internal Medicine Cardiovascular Disease; EMERGENCY PHYSICIAN Emergency Medicine; FAMILY PHYSICIAN Internal Medicine
DX: R07.9 Chest pain, unspecified (principal); I25.110 Atherosclerotic heart disease of native coronary artery with unstable angina pectoris; I10 Essential (primary) hypertension; R06.02 Shortness of breath; R42 Dizziness and giddiness; R51.9 Headache, unspecified; H53.8 Other visual disturbances; K21.9 Gastro-esophageal reflux disease without esophagitis; G47.33 Obstructive sleep apnea (adult) (pediatric); R73.03 Prediabetes; F41.9 Anxiety disorder, unspecified; R60.0 Localized edema; M79.606 Pain in leg, unspecified; E78.5 Hyperlipidemia, unspecified; N40.0 Benign prostatic hyperplasia without lower urinary tract symptoms; R07.89 Other chest pain; R06.09 Other forms of dyspnea; I25.10 Atherosclerotic heart disease of native coronary artery without angina pectoris; R94.31 Abnormal electrocardiogram [ECG] [EKG]; I51.7 Cardiomegaly; Z95.5 Presence of coronary angioplasty implant and graft; Z82.49 Family history of ischemic heart disease and other diseases of the circulatory system; Z87.891 Personal history of nicotine dependence
CPT/HCPCS: 71046; 78452; 80048; 80053; 80061; 83036; 83735; 84443; 84484; 85025; 85027; 93005; 93017; 93306; 96360; 99285; A9500; G0378; J2785

== ENCOUNTER 2024-04-04 02:58 | Inpatient (IN) | payer MEDICARE, OTHER, SELFPAY ==
[2024-04-03 22:07] VITALS: BP 180/105
[2024-04-03 22:23] VITALS: BMI 30.3
[2024-04-03 22:31] LABS: % Basophils 0.6 % (0-2); % Eosinophils 1.3 % (0-6); % Immature Granulocytes 0.3 % (0-0.5); % Lymphocytes 14.9 % (20.5-51.1); % Monocytes 10.6 % (1.7-9.3); % Neutrophils 72.3 % (42.2-75.2); Absolute Basophils 0.1 10^3/uL (0-0.2); Absolute Eosinophils 0.1 10^3/uL (0-0.7); Absolute Lymphocytes 1.6 10^3/uL (1.2-3.4); Absolute Monocytes 1.2 10^3/uL (0.1-0.6); Absolute Neutrophils 7.9 10^3/uL (1.4-6.5); Hematocrit 40.7 % (39.0-52.0); Hemoglobin 14.6 g/dL (13.0-18.0); Mean Corp Hgb Conc. 35.9 g/dL (33.0-37.0); Mean Corpuscular Hgb 30.7 pg (27.0-31.0); Mean Corpuscular Volume 85.7 fL (80.0-94.0); Mean Platelet Volume 10.9 fL (7.4-10.4); Nucleated Red Blood Cells % 0 % (-); Platelet Count 228 10^3/uL (130-400); Red Blood Cell Count 4.75 10^6/uL (4.70-6.10); Red Cell Dist. Width 12.4 % (11.5-14.5); White Blood Cell Count 10.9 10^3/uL (4.8-10.8)
[2024-04-03 22:52] LABS: ALT (SGPT) 31 U/L (0-50); AST (SGOT) 29 U/L (17-59); Albumin 5.4 g/dl (3.5-5.0); Alkaline Phosphatase 58 U/L (38-126); Blood Urea Nitrogen 22 mg/dl (9-20); Calcium 10.2 mg/dl (8.4-10.2); Carbon Dioxide 18 mmol/L (22-30); Chloride 102 mmol/L (98-107); Estimated Creatinine Clearance 66 ml/min; Glucose 127 mg/dl (70-99); Potassium 4.1 mmol/L (3.5-5.1); Sodium 136 mmol/L (135-145); Total Bilirubin 0.5 mg/dl (0.2-1.3); Total Protein 8.2 g/dl (6.3-8.2); eGFR > 60.00
[2024-04-03 22:55] LABS: NT-proBNP 57.6 pg/ml; Troponin I < 0.012 ng/ml
[2024-04-03 23:38] VITALS: BP 143/74
[2024-04-03 23:47] VITALS: BP 110/58
[2024-04-03 23:52] VITALS: BP 82/55
[2024-04-03 23:55] VITALS: BP 111/62
--- NOTE | 2024-04-03 23:57 | EDRN ---
Cardioversion performed by Dr. Urrutia. Consent obtained.
2344- 50mg of propofol given
2346- 30mg of propofol given
2347- 150J
2349- Patient back in a fib
2351- 40mg of propofol
2352- 200J
2353- 300J
2356- End per Dr. Urrutia
[2024-04-04] VITALS (19 sets, daily range): BP systolic 100–166; BP diastolic 50–91; BMI 29.1
--- NOTE | 2024-04-04 | ED.GENMED ---
History of Present Illness
General
Chief Complaint: Heart Rate Problem
Source: patient, records and spouse
Exam Limitations: none
Time Seen by Provider: 04/03/24 22:23
Nursing documentation reviewed up to this point in time: agreed with
History of Present Illness
History of Present Illness:
Patient is a 74-year-old male who presents to the emergency department complaining of tachycardia and palpitations with mild shortness of breath and chest discomfort. Patient has a known history of coronary artery disease with stents but a
preserved EF. Patient denies any weight changes, fever, chills, nasal congestion, sore throat or cough. Patient denies any GI or symptoms. Patient denies any leg pain or swelling. Patient denies any previous history of atrial fibrillation.
Patient denied any tick bites or rashes.
Past History
Past History
ED Past Medical History: CAD, GERD, HTN and Other (Prediabetic, borderline cholesterol, anxiety, obstructive sleep apnea and uses CPAP)
ED Past Surgical History: Tonsilectomy; Negative Cardiac
Social History
Tobacco: Non-smoker
Alcohol: None
Drug: None
Personal:
Living: with family
Employment: Retired
Family History
Family History: Hypertension
Review of Systems
Review of Systems
All Other Systems: ROS reviewed and negative except as documented in HPI and ROS
Constitutional: Denies fever, fatigue or chills
EENT: Reports no symptoms
Respiratory: Reports trouble breathing
Cardiac: Reports chest pain and palpitations; Denies diaphoresis or syncope
ABD/GI: Reports no symptoms
: Reports no symptoms
Musculoskeletal: Reports no symptoms
Skin: Reports no symptoms
Neurological: Reports no symptoms
Hematologic/Lymphatic: Reports no symptoms
Psychiatric: Reports no symptoms
Phy Exam
Physical Exam
Physical Exam:
Physical Exam
General: minimal distress, alert and appropriate, well nourished, well hydrated
HENT: Normocephalic, supple with no lymphadenopathy, no thyromegaly
Eyes: Clear sclera, conjuctiva without injection
Heart: irregular irregular rhythm and tachycardic rate. No S3, S4. No murmur. No NVD
Lungs: No respiratory distress, no stridor, lung sounds clear and equal bilaterally, chest wall symmetrical and nontender
Abdomen: Soft, nontender, no organomegaly, no CVA tenderness, BS good
Neuro: Alert and oriented x 3, CN II - XII intact, no motor focality, no cerebellar dysfunction
Skin: no rash
Psychiatric: well kept. interactive and cooperative
Extremities: No edema, cyanosis, tenderness, Good and equal peripheral pulses.
Scores
Heart Failure Risk
Heart Failure Risk Score: Not Applicable
Heart Score for Chest Pain Patients
STEMI patient?: Not applicable
Withdrawal Assessment of Alcohol
Withdrawal Assessment Completed?: Not applicable
Course
Orders/Labs/Results
Orders:
Orders
04/03/24 22:03
Electrocardiogram (*1) Urgent
Reason for Study: Other
Other Reason for Exam: Respiratory Distress
Cardiac Monitoring- Treatment ONCE
EKG- Treatment ONCE
IV Insert/Care/Rem.- Treatment PRN
CR Chest - 2 Views Urgent
Comment:
Reason For Exam: respiratory distress
O2 Therapy [RESP] Urgent
Titrate/Wean O2 to maintain O2 sat greater than (%): 93
Special Instructions: TO MAINTAIN CONTINUOUS O2 SATS >/= 93%
Pulse Ox/cont/shift [RESP] Urgent
Quantity: 1
Special Instructions: continuous pulse ox
04/03/24 22:25
Complete Blood Count/With Diff Urgent
Comprehensive Metabolic Panel Urgent
NT-proBNP Urgent
Troponin I Urgent
04/03/24 23:20
Propofol [Diprivan] 20 ml .ROUTE .STK-MED
04/03/24 23:45
Diltiazem 125 mg/125 ml Nss [Cardizem] 125 mg in 125 ml IV PER PROTOCOL
Initial dose in mg/hr, then titrate:: 10
Titrate to keep:: Heart rate 80-100 bpm
Titrate by mg/hr:: 5 mg/hr
Frequency of titrations (minutes):: 15
Maximum dose in mg/hr:: 15
04/03/24 23:49
EKG [Electrocardiogram (*1)] Urgent
Reason for Study: Other
Other Reason for Exam: post cardioversion
EKG- Treatment ONCE
04/03/24 23:57
Diltiazem HCl [Cardizem] 10 mg IV NOW STA
Abnormal Lab Results
04/03/24
22:25
WBC 10.9 H 10^3/uL
(4.8-10.8)
MPV 10.9 H fL
(7.4-10.4)
Absolute Neuts (auto) 7.9 H 10^3/uL
(1.4-6.5)
Absolute Monos (auto) 1.2 H 10^3/uL
(0.1-0.6)
Lymphocytes % 14.9 L %
(20.5-51.1)
Monocytes % 10.6 H %
(1.7-9.3)
Carbon Dioxide 18 L mmol/L
(22-30)
BUN 22 H mg/dl
(9-20)
Glucose 127 H mg/dl
(70-99)
Albumin 5.4 H g/dl
(3.5-5.0)
04/03/24 22:25
04/03/24 22:25
Vital Signs
Initial and Last Documented VS:
Initial Vital Signs
Temp Pulse Resp Pulse Ox
98.1 F 106 24 96
04/03/24 22:04 04/03/24 22:04 04/03/24 22:04 04/03/24 22:04
Last Documented Vital Signs
Temp Pulse Resp BP Pulse Ox
98.1 F 116 18 117/70 97
04/03/24 23:38 04/04/24 00:00 04/04/24 00:00 04/04/24 00:00 04/04/24 00:00
Procedures
Cardioversion
Indication:: Afib
Performed by:: rosa mariamer
Synchronized?: Yes
Energy Used: Other (150, 200 and 300)
Number of attempts: 3
Successful?: No
Complications: none
ASA Risk Score: Class III
Any reaction or bad outcome to prior sedation/anesthesia?: No history of a reaction
Sedation level to be attained: deep
Chart and allergies reviewed: Yes
Patient reassessed prior to sedation: Yes
Time out completed at (validating right patient & procedure): 23:44
History of difficult intubation: No
Airway free of obstruction: Yes
Patient has a gag reflex: Yes
Patient is able to open mouth: Yes
Patient has no dentures: Yes
Patient has no loose teeth: Yes
Medication administered by Provider during Moderate Sedation: IV Propofol (mg)
Total dose administered: 120
Time drug administered: 23:44
Start Time: 23:44
Stop Time: 23:56
*Radiology
Radiology exam reviewed: other (na)
*Pulse Oximetry
Patient hypoxic: no
*EKG
Interpreted by ED Provider?: Yes
EKG Intrepretation Date: 04/04/24
EKG Intrepretation Time: 00:04
Interpretation: abnormal
Comparison EKG: changes noted
Heart Rate: 157
Rate: tachycardiac
Rhythm: a-fib
[place]: left axis deviation
Interval: normal QT interval
QRS Pattern: normal QRS
Ischemia: non-specific ST changes
*Lumber Marker Interpretation
Rate: tachycardiac
Interpretation: abnormal
Heart Rate: 120
Rhythm: a-fib
*Critical Care Note
Total Time (30-74mins, 75-104mins- exclusive of procedures): Not Applicable
Update Note
Update Note:
The attempted cardioversion at 150, 200 and 300 was unsuccessful. Patiently placed on diltiazem and admitted. Initially at 150 the patient had gone into sinus rhythm and has sustained it and then within 1 to 2 minutes went back in the A-fib with
RVR
ED Attending Note
-
Portions of this chart may have been created with voice recognition software.� Occasional wrong word or��sound alike� substitutions may have occurred due to the inherent limitations of voice recognition software.
Discharge Plan
Departure
Patient Disposition: Admit
Date of Disposition: 04/04/24
Time of Disposition: 00:09
Admit to: Telemetry
Admit to doctor: Hospitalist
Presentation/result/management discussed w/ accepting MD/DO: Hospitalist
Patient with high blood pressure during this ER visit?: Yes
Condition: Fair
Covid-19: Not Applicable
Discharge Problem:
Atrial fibrillation with rapid ventricular response
Prescriptions:
No Action
famotidine 40 mg Tablet
40 mg PO DAILY
amlodipine 5 mg Tablet
5 mg PO BID
pantoprazole [Protonix] 40 mg Tablet,Delayed Release (Dr/Ec)
40 mg PO DAILY Qty: 0
valsartan 320 mg Tablet
320 mg PO DAILY
eplerenone 25 mg Tablet
25 mg PO DAILY
aspirin 81 mg Tablet,Chewable
81 mg PO DAILY 30 Days Qty: 30 0RF
hydralazine 50 mg Tablet
50 mg PO BID Qty: 60 0RF
milk thistle 175 mg Tablet
175 mg PO DAILY
therapeutic multivitamin Tablet
1 tab PO DAILY
pantothenic acid (vit B5) 250 mg Tablet
250 mg PO DAILY
vitamin B complex Capsule
1 cap PO DAILY
lutein 20 mg Capsule
20 mg PO DAILY
omega 5-qgr-ikz-fish oil [Fish Oil] 1,000 mg (120 mg-180 mg) Capsule
1 cap PO DAILY
Focus Factor
1 cap PO DAILY
alfuzosin 10 mg tablet extended release 24 hr
10 mg PO HS
Linzess 145 mcg capsule
145 mcg PO DAILY
Zeaxatine
4 mg PO DAILY
isosorbide mononitrate 30 mg Tablet Extended Release 24 Hr
30 mg PO DAILY Qty: 30 0RF
rosuvastatin 20 mg Tablet
20 mg PO QPM Qty: 30 0RF
Referrals:
Kamari Robles MD [Family Provider] -
Interventions
Interventions:
*Risk Screen - Suicide Last Done: 04/03/24 22:24
*General Assessment Last Done: 04/03/24 22:24
*Neglect/Abuse Screening Last Done: 04/03/24 22:24
*ED COVID-19 Vaccine History Last Done: 04/03/24 22:24
Discharge Date and Time
Print Language: EMIRATI
[2024-04-04] MEDS: CARDIZEM 10 MG IV (00:19)
[2024-04-04] MEDS: CARDIZEM 125 IV (00:22)
--- NOTE | 2024-04-04 01:43 | HPS.HSE ---
Addendum entered and electronically signed by Enrike Villafuerte MD 04/04/24 02:08:
Level of care change to IVU due to titrating Diltiazem gtt
Original Note:
Family Physician
-
Family Physician: Kamari Robles
Chief Complaint
-
SoB and chest discomfort.
History of Present Illness
HPI
74M HX CAD with stent , recent Lexiscan for CP without evidence of scan ischemia or scar, HTN evaluation at ER for SoB and chest discomfort.
- 03/02/24 recent Lexiscan for CP without evidence of scan ischemia or scar
- NEG TPNI
- EKG: New A Fib with RVR
Per ER note:
- failed attempted CV at 150, 200 and 300 was unsuccessful.
- Initially with 150 J - had gone into sinus rhythm and has sustained it and then within 1 to 2 minutes back in FAF
- placed on diltiazem gtt and admitted
Medical History
Past Medical History
Past Medical History: Reports HTN and Other
Additional Past Medical History:
Coronary Artery Disease s/p Stent in February 2023
Essential Hypertension
Hyperlipidemia
Diabetes Mellitus, Type II
Anxiety
GERD
BPH
Obstructive Sleep Apnea
Past Surgical History: Reports Other
Social History
Tobacco: Former Smoker
Alcohol: None
Family History
Family History: Not pertinent
Allergies / Home Medications
Allergies reflects when Allergies were last updated in [facility].
Home Medications with original date entered in [facility]
Allergy/Medication List:
Allergies
Allergy/AdvReac Type Severity Reaction Status Date / Time
atorvastatin Allergy Unknown Unknown Verified 04/03/24 22:03
Home Medications
amlodipine 5 mg tablet 5 mg PO BID Blood Pressure 02/28/23
eplerenone 25 mg tablet 25 mg PO DAILY Lung/Breathing Issues 02/28/23
famotidine 40 mg tablet 40 mg PO DAILY Gastrointestinal Issue 02/28/23
pantoprazole 40 mg tablet,delayed release (Protonix) 40 mg PO DAILY Gastrointestinal Issue ##0 02/28/23
valsartan 320 mg tablet 320 mg PO DAILY Blood Pressure 02/28/23
aspirin 81 mg chewable tablet 81 mg PO DAILY 30 days #30 tabs 03/02/23
hydralazine 50 mg tablet 50 mg PO BID #60 tabs 03/02/23
Focus Factor 1 cap PO DAILY Supplement 03/05/23
lutein 20 mg capsule 20 mg PO DAILY Supplement 03/05/23
milk thistle 175 mg tablet 175 mg PO DAILY Supplement 03/05/23
omega 3-ipt-lxr-fish oil 1,000 mg (120 mg-180 mg) capsule (Fish Oil) 1 cap PO DAILY Supplement 03/05/23
pantothenic acid (vit B5) 250 mg tablet 250 mg PO DAILY Supplement 03/05/23
therapeutic multivitamin 1 tab PO DAILY Supplement 03/05/23
vitamin B complex 1 cap PO DAILY Supplement 03/05/23
Zeaxatine 4 mg PO DAILY Supplement 03/01/24
alfuzosin 10 mg tablet,extended release 24 hr 10 mg PO HS Urinary Issue 03/01/24
linaclotide 145 mcg capsule (Linzess) 145 mcg PO DAILY Constipation 03/01/24
isosorbide mononitrate 30 mg tablet,extended release 24 hr 30 mg PO DAILY #30 tabs 03/02/24
rosuvastatin 20 mg tablet 20 mg PO QPM hyperlipidemia #30 tabs 03/02/24
Review of Systems
-
Constitutional: Reports No Symptoms
EENT: Reports No Symptoms
Respiratory: Reports Trouble Breathing
Cardiac: Reports Chest Pain
Abdomen/GI: Reports No Symptoms
: Reports No Symptoms
Musculoskeletal: Reports No Symptoms
Skin: Reports No Symptoms
Neurological: Reports No Symptoms
Endocrine: Reports No Symptoms
Hematologic/Lymphatic: Reports No Symptoms
Psych: Reports No Symptoms
Physical Exam
Vital Signs
Vital Signs
Temp Pulse Resp BP Pulse Ox
98.1 F 88 25 162/90 96
04/03/24 23:38 04/04/24 01:00 04/04/24 01:15 04/04/24 01:16 04/04/24 00:30
Physical Exam
General: Well Developed, Well Nourished and No Apparent Distress
HEENT: NormoCephalic, Moist mucous membranes and Atraumatic
Respiratory: Clear
Cardiac: S1/S2, Irregular Rhythm and Tachycardia; No Murmur or Rub
GI: Soft, Non Tender, Non Distended and Normal Bowel Sounds; No Organomegaly
Rectal: Deferred by Provider
Musculoskeletal: No Clubbing, No Cyanosis and No Edema
Skin: No Rash
Neuro: Nonfocal/grossly intact
Psych: Intact Judgment/Insight
Laboratory Results
-
04/03/24 22:25
04/03/24 22:25
Laboratory Results
Total Bilirubin 0.5 mg/dl (0.2-1.3) 04/03/24 22:25
AST 29 U/L (17-59) 04/03/24 22:25
ALT 31 U/L (0-50) 04/03/24 22:25
Alkaline Phosphatase 58 U/L (38-126) 04/03/24 22:25
Troponin I < 0.012 ng/ml 04/03/24 22:25
Data Reviewed
-
Medical Tests (Nuc Med, Echo, EKG etc): Report Reviewed by me
Lab Data: Labs Reviewed by me
Old Records: Reviewed
Impression/Plan
-
Reviewed VS:
HR AF with VR 140 --> cardioverted to 60s then back to AF with VR 110s
BP 160s/78
Data
WCC 10.9
CO2 18
BUN 22
Cr 1.0
e GFR > 60
NEG TPNI proBNP 57
04/03/24 CXR: No acute cardiopulmonary process.
04/03/24 EKG:
ATRIAL FIBRILLATION WITH RAPID VENTRICULAR RESPONSE
LEFT AXIS DEVIATION
MODERATE VOLTAGE CRITERIA FOR LVH, MAY BE NORMAL VARIANT ( R in aVL , [facility]
product )
NONSPECIFIC ST AND T WAVE ABNORMALITY
ABNORMAL ECG
WHEN COMPARED WITH ECG OF 01-MAR-2024 17:17,
SIGNIFICANT CHANGES HAVE OCCURRED
03/02/24 LEXISCAN NUCLEAR TEST
1. Pharmacologic nuclear stress test using Lexiscan protocol.
2. Pharmacologic stress EKG inconclusive for ischemia.
3. Normal myocardial perfusion imaging without evidence of scan ischemia or scar.
4. Normal left ventricular size and contractility with LV ejection fraction 63%.
5. Moderate risk study secondary to the use of pharmacologic agent.
03/02/24 ECHO
LVEF 60-65%
Grade 1 diastolic dysfunction with increased left atrial pressure
Mildly dilated left atrium
Trace mitral regurgitation
Trace tricuspid regurgitation
Estimated pulmonary artery pressure of 35-40 mmHg
Last hospitalist admission:
03/01/24 - 03/02/24
PDX: CP eval for ACS
ASSESSMENT & PLAN
Pending Rx reconciliation
New onset AF with RVR and associated chest discomfort: Not on OAC
Hypertensive at time
- failed attempted CV to sustained NSR
- cont. Diltiazem gtt
- DCA card consult
HX Chest Pain but recent Lexiscan for CP without evidence of scan ischemia or scar (03/02/24)
HX CAD with stent in February 2023
- NEG TPNI
- Trend TPNI
- cont. aspirin
Essential HTN
- cont. amlodipine, eplerenone, hydralazine and valsartan
Hyperlipidemia
- cont atorvastatin
Prediabetic
- A1C 6.1 on
- Diet control
- add ISS low
GERD
- cont famotidine and Protonix
BPH
- cont alfuzosin
DVT Px : Lovenox
Code Status: Full Code
IP TLM
[2024-04-04] MEDS: NITROSTAT (SUBLINGUAL) 0.4 MG SL (02:42)
[2024-04-04 04:14] LABS: Hematocrit 38.1 % (39.0-52.0); Hemoglobin 13.4 g/dL (13.0-18.0); Mean Corp Hgb Conc. 35.2 g/dL (33.0-37.0); Mean Corpuscular Hgb 30.2 pg (27.0-31.0); Platelet Count 208 10^3/uL (130-400); Red Blood Cell Count 4.43 10^6/uL (4.70-6.10); Red Cell Dist. Width 12.5 % (11.5-14.5); White Blood Cell Count 8.2 10^3/uL (4.8-10.8)
--- NOTE | 2024-04-04 04:19 | PTCARENOTE ---
Received patient from the ED at 0300. Denied any complaints of pain or discomfort at that time. Chest pain is gone. Cardizem drip running at 5mg/hr. Remains in A-fib in the 70's.
[2024-04-04 04:37] LABS: Blood Urea Nitrogen 21 mg/dl (9-20); Calcium 9.9 mg/dl (8.4-10.2); Carbon Dioxide 20 mmol/L (22-30); Chloride 105 mmol/L (98-107); Estimated Creatinine Clearance 65 ml/min; Glucose 135 mg/dl (70-99); HDL Cholesterol 54 mg/dl; LDL Cholesterol, Calculated 121 mg/dl; Potassium 4.5 mmol/L (3.5-5.1); Sodium 136 mmol/L (135-145); Total Cholesterol 201 mg/dl (50-199); Triglyceride 134 mg/dl (10-149); Very Low Density Lipoprotein 26 mg/dl (0-30); eGFR > 60.00
[2024-04-04 04:52] LABS: Troponin I 0.029 ng/ml
--- NOTE | 2024-04-04 07:34 | CON.CAR ---
Addendum entered and electronically signed by Pollo Peace MD 04/04/24 11:19:
I saw and examined the patient.
The Telephone Order Clerk Room Service's note was reviewed and I agree with the note.
Comment:
: No distress, awake, Ox3
HEENT: supple, anicteric, mmm
LUNGS: CTA, no wheezes/rales
CV: Reg, S1/S2, 1/6 syst LSB, no gallop
ABD: soft, BS+, NT/ND
EXT: No edema
NEURO: Gross non-focal
SKIN: No rash
PLan:
He has a past medical history of coronary artery disease status post PCI, hypertension, borderline diabetes who presents with new onset atrial fibrillation. He was placed on a Cardizem drip and overnight he converted back into sinus rhythm. He did
have a 5-second conversion pause. He currently is in sinus rhythm with heart rates in the 60s. He denied any chest pains. He did feel some palpitations and mild dyspnea on exertion.
[id number] score is 4. Will start Eliquis 5 mg p.o. twice daily.
Continue aspirin. He did have a conversion pause and will need to watch for bradycardia. Will add 12.5 mg of Toprol.
Continue amlodipine, eplerenone, isosorbide, hydralazine and valsartan. DC Cardizem drip.
Patient had recent echocardiogram with preserved ejection fraction and no significant valve disease.
Would observe for 24 hours and likely DC in am with follow-up with ATC
Original Note:
Consultation
Consultation Request
Date/Time Consultation Requested: 04/04/2024
Date/Time Consultation Performed: 04/04/2024
Requesting Provider: Dr. Villafuerte
Performing Provider: Dr. Ramos
Reason for Consultation: New Afib w/ RVR
Medical History
-
History of Present Illness:
HPI: Gabino is a 74 year old male with PMH of CAD s/p RCA PCI, HTN, GERD, prediabetes, HOSSEIN, and former tobacco abuse who presented to [facility] for evaluation of possible afib. He reports he was working around the house yesterday and then when he went
to get a shower at night, noticed that his heart was racing. He then sat down in his recliner to see if relaxing would help bring his HR down, however it continued to be elevated and he checked his [employer] device. This showed possible afib
which he reports he has never seen before. Due to persistent tachycardia and heart racing with possible afib on [employer] mobile, he decided to come to ER for evaluation. In ER, he was found to be in rapid atrial fibrillation which is a new diagnosis
for patient. CV was attempted in ER, however was unsuccessful. He then was started on cardizem gtt and admitted for further evaluation and management. This AM, he spontaneously converted to SR while sleeping. > 5 second conversion pauses noted on
telemetry. He remains in SR at this time and feels well.
PMH:
CAD
RCA PCI x2 03/01/23
HTN
GERD
prediabetes
HOSSEIN
Family history of CAD
Former smoker
Past Medical History
Past Medical History: Other (in HPI)
Social History
Tobacco: Former Smoker
Alcohol: Occasional
Drug: None
Personal:
Living: Alone
Employment: Retired
Family History
Family History: CAD (in father)
Allergies / Home Medications
Allergy/AdvReac Type Severity Reaction Status Date / Time
atorvastatin Allergy Unknown Unknown Verified 04/03/24 22:03
�Medication �Instructions �Recorded �Confirmed �Type
amlodipine 5 mg tablet 5 mg PO BID Blood Pressure 02/28/23 04/04/24 History
eplerenone 25 mg tablet 25 mg PO DAILY Lung/Breathing 02/28/23 04/04/24 History
Issues
famotidine 40 mg tablet 40 mg PO DAILY Gastrointestinal 02/28/23 04/04/24 History
Issue
pantoprazole 40 mg tablet,delayed 40 mg PO DAILY Gastrointestinal 02/28/23 04/04/24 History
release (Protonix) Issue ##0
valsartan 320 mg tablet 320 mg PO DAILY Blood Pressure 02/28/23 04/04/24 History
aspirin 81 mg chewable tablet 81 mg PO DAILY 30 days #30 tabs 03/02/23 04/04/24 Rx
hydralazine 50 mg tablet 50 mg PO BID #60 tabs 03/02/23 04/04/24 Rx
Focus Factor 1 cap PO DAILY Supplement 03/05/23 04/04/24 History
lutein 20 mg capsule 20 mg PO DAILY Supplement 03/05/23 04/04/24 History
milk thistle 175 mg tablet 175 mg PO DAILY Supplement 03/05/23 04/04/24 History
omega 7-ygx-drm-fish oil 1,000 mg 1 cap PO DAILY Supplement 03/05/23 04/04/24 History
(120 mg-180 mg) capsule (Fish Oil)
pantothenic acid (vit B5) 250 mg 250 mg PO DAILY Supplement 03/05/23 04/04/24 History
tablet
therapeutic multivitamin 1 tab PO DAILY Supplement 03/05/23 04/04/24 History
vitamin B complex 1 cap PO DAILY Supplement 03/05/23 04/04/24 History
Zeaxatine 4 mg PO DAILY Supplement 03/01/24 04/04/24 History
alfuzosin 10 mg tablet,extended 10 mg PO HS Urinary Issue 03/01/24 04/04/24 History
release 24 hr
linaclotide 145 mcg capsule 145 mcg PO DAILY Constipation 03/01/24 04/04/24 History
(Linzess)
isosorbide mononitrate 30 mg 30 mg PO DAILY #30 tabs 03/02/24 04/04/24 Rx
tablet,extended release 24 hr
Review of Systems
-
History Source: Patient
All other systems: Negative unless noted
Physical Exam
Vital Signs
Temp Pulse Resp BP Pulse Ox
98.1 F 65 18 114/52 97
04/04/24 03:04 04/04/24 06:15 04/04/24 03:04 04/04/24 06:00 04/04/24 04:05
Lab Results
04/04/24 03:43
04/04/24 03:43
Troponin I 0.029 ng/ml D 04/04/24 03:43
Isb-A-Ocvhhozbqlx Pept 57.6 pg/ml 04/03/24 22:25
Physical Exam
General: Well Developed, Well Nourished and No Apparent Distress
HEENT: Normocephalic, Anicteric and Moist Mucous Membranes
Respiratory: Clear and Non Labored Respirations
Cardiac: S1/S2 and Regular Rhythm
Musculoskeletal: No Clubbing, No Cyanosis and No Edema
Skin: Warm and Dry
Neuro: AO x 3 and Nonfocal/Grossly Intact
Psych: Calm
Impression / Plan
-
PCP: Dr. Robles
Cardiology: Dr. Horne
Impression:
Presented with palpitations, heart racing
Paroxysmal atrial fibrillation - newly diagnosed
5 second conversion pause
CAD
RCA PCI x2 03/01/23
HTN
GERD
prediabetes
HOSSEIN
Family history of CAD
Former smoker
Lexiscan nuclear stress test 03/02/2024: Perfusion images revealed a small, very mild defect in the basal inferior on rest images which normalizes on both stress and prone imaging. No scan evidence of ischemia, scar, or infarct. EF 63%.
ECHO 03/05/2023: EF 70 to 75%, mild concentric LVH, hyperdynamic LV, mildly dilated right atrium, mild TR, PAP 42 mmHg
Plan:
-Presented with palpitations/heart racing and found to be in new, rapid atrial fibrillation.
-CV attempted x3 in ER, however unsuccessful. Admitted and started on Cardizem gtt.
-HRs improved overnight and in AM at 7:20, spontaneously converted to SR.
-5 second conversion pause noted while on cardizem @5. Asymptomatic as patient was sleeping.
-Remains in SR at this time. Feeling well.
-Discussed AF and need for anticoagulation with patient. Will start Eliquis 5mg BID and will have CM assess the cost. CHADSVASC score 4.
-K stable. TSH 2.08 03/02.
-Patient reportedly has history of fatigue with beta blockers, however would try low dose Toprol 12.5mg daily for rate control.
-Recent echo 03/05 with preserved EF and no significant valvular disease. No need to repeat at this time.
-Continue Imdur, hydralazine, and valsartan.
-Monitor HR's overnight and if stable, discharge in AM with close follow up w/ primary helper electrical.
HPI: Gabino is a 74 year old male with PMH of CAD s/p RCA PCI, HTN, GERD, prediabetes, HOSSEIN, and former tobacco abuse who presented to [facility] for evaluation of possible afib. He reports he was working around the house yesterday and then when he went
to get a shower at night, noticed that his heart was racing. He then sat down in his recliner to see if relaxing would help bring his HR down, however it continued to be elevated and he checked his [employer] device. This showed possible afib
which he reports he has never seen before. Due to persistent tachycardia and heart racing with possible afib on [employer] mobile, he decided to come to ER for evaluation. In ER, he was found to be in rapid atrial fibrillation which is a new diagnosis
for patient. CV was attempted in ER, however was unsuccessful. He then was started on Cardizem gtt and admitted for further evaluation and management. This AM, he spontaneously converted to SR while sleeping. > 5 second conversion pauses noted on
telemetry. He remains in SR at this time and feels well.
Data Reviewed
-
EKG: Tracing Personally Visualized and interpreted
Radiology: Report Reviewed by me
Labs: Labs Reviewed by me
Old Records: Reviewed
[2024-04-04] MEDS: IMDUR (EXTENDED RELEASE) 30 MG PO (08:57)
[2024-04-04] MEDS: APRESOLINE 50 MG PO ×2 (08:58→20:04)
[2024-04-04] MEDS: NORVASC 5 MG PO ×2 (08:58→20:03)
[2024-04-04] MEDS: LOW STRENGTH ASPIRIN 81 MG PO (08:58)
[2024-04-04] MEDS: DIOVAN 320 MG PO (08:58)
--- NOTE | 2024-04-04 10:35 | CM ---
Chart reviewed. Patient is independent of ADLS, lives alone in a 1 [address], 2 [address], 0 DME. Plan is for the patient to return home. CM to follow
[2024-04-04 11:04] LABS: Troponin I 0.013 ng/ml
--- NOTE | 2024-04-04 12:16 | CM ---
Pricing on [employer] through the patients [employer] [facility] id# [id number] is $87 a month and $ 272 for a 90 day supply. Patient is agreeable to the cost. I placed a free 30 day coupon in the patients red discharge folder.
--- NOTE | 2024-04-04 13:15 | W.PN.HOSP.TC ---
Today's Communication/Plan
-
start Eliquis
Assessment / Plan
Assessment / Plan
New onset AF with RVR and associated chest discomfort: Not on OAC
Hypertensive at time
- failed attempted CV x 3 to sustained NSR
- started on a Diltiazem gtt with conversion back into NSR
- DCA card consult input appreciated
will be started on Eliquis 5 mg bid, confirmed with cardio that they want pt on both ASA and Eliquis for now
P: discussed with ROSMERY Membreno. Pt to be OOB with potential dc tomorrow
HX Chest Pain but recent Lexiscan for CP without evidence of scan ischemia or scar (03/02/24)
HX CAD with stent in February 2023
- TPNI 0.029-->0.013
- cont. aspirin
Essential HTN
- cont. amlodipine, eplerenone, hydralazine and valsartan
Toprol XL 12.5 mg will be added
Hyperlipidemia
- cont atorvastatin
Prediabetic
- A1C 6.1 on 03/02/24
- Diet control
- add ISS low
GERD
- cont famotidine and Protonix
BPH
- cont alfuzosin
DVT Px : Lovenox
Code Status: Full Code
IP TLM
Anticipated Discharge: 24 - 48 hours
Subjective/Interval History
-
Date of Service: April 04, 2024
No chest pain
Objective Data
-
Labs:
Laboratory Results
04/04/24
03:43
WBC 8.2
Hgb 13.4
Hct 38.1 L
Plt Count 208
Sodium 136
Potassium 4.5
Chloride 105
Carbon Dioxide 20 L
BUN 21 H
Creatinine 0.9
Glucose 135 H
Calcium 9.9
Vital Signs:
Vital Signs
Temp Pulse Resp BP Pulse Ox
97.6 F 50 16 124/77 97
04/04/24 11:22 04/04/24 07:46 04/04/24 11:22 04/04/24 07:46 04/04/24 11:22
Review of Systems
-
History Source: Patient and Coordinated Provider
Constitutional: Denies Fever
EENT: Reports No Symptoms Reported
Respiratory: Reports No Symptoms
Cardiac: Reports No Symptoms; Denies Chest Pain or Palpitations (resolved)
Abdomen/GI: Reports No Symptoms
Genitourinary: Reports No Symptoms
Physical Exam
-
General: Well Developed, Well Nourished and No Apparent Distress
HEENT: Normocephalic, Atraumatic and Moist Mucous Membranes
Respiratory: Clear to Auscultation; Negative Wheezes, Rales or Rhonchi
Cardiac: Regular Rhythm, S1/S2 and Murmur (2/6sem)
GI: Soft, Nontender and Nondistended
Musculoskeletal: No Clubbing, No Cyanosis and No Edema
Neuro: Awake, Alert and Oriented
[2024-04-04] MEDS: CRESTOR 20 MG PO (18:32)
--- NOTE | 2024-04-04 18:59 | PTCARENOTE ---
Pt converted to SB at 0720 after long pause and then bradycardia in the 30's. Pt asymptomatic and was sleeping at the time. Pt remains in SR, rate in the 60's to 70's. OOB ambulating in the hallway. Denies any chest pain or sob.
[2024-04-04] MEDS: ELIQUIS 5 MG PO (20:03)
--- NOTE | 2024-04-04 20:29 | PTCARENOTE ---
Pt. received at change of shift. Pt. seen and assessed. Pt. tele reading NSR. Pt. AOx3, no complaints of pain at this time. Continuing to monitor the pt.
[2024-04-04] MEDS: FLOMAX 0.4 MG PO (21:27)
[2024-04-05 03:15] VITALS: BP 162/68
[2024-04-05 03:42] VITALS: BMI 28.9
[2024-04-05 03:59] LABS: % Basophils 0.5 % (0-2); % Eosinophils 2.7 % (0-6); % Immature Granulocytes 0.3 % (0-0.5); % Monocytes 13.8 % (1.7-9.3); % Neutrophils 59.7 % (42.2-75.2); Absolute Eosinophils 0.2 10^3/uL (0-0.7); Absolute Lymphocytes 1.8 10^3/uL (1.2-3.4); Absolute Monocytes 1.1 10^3/uL (0.1-0.6); Absolute Neutrophils 4.6 10^3/uL (1.4-6.5); Hematocrit 38.6 % (39.0-52.0); Hemoglobin 13.6 g/dL (13.0-18.0); Mean Corp Hgb Conc. 35.2 g/dL (33.0-37.0); Mean Corpuscular Hgb 30.6 pg (27.0-31.0); Mean Corpuscular Volume 86.7 fL (80.0-94.0); Nucleated Red Blood Cells % 0 % (-); Platelet Count 220 10^3/uL (130-400); Red Blood Cell Count 4.45 10^6/uL (4.70-6.10); Red Cell Dist. Width 12.7 % (11.5-14.5); White Blood Cell Count 7.7 10^3/uL (4.8-10.8)
[2024-04-05 04:26] LABS: Blood Urea Nitrogen 22 mg/dl (9-20); Calcium 9.8 mg/dl (8.4-10.2); Carbon Dioxide 21 mmol/L (22-30); Chloride 101 mmol/L (98-107); Estimated Creatinine Clearance 65 ml/min; Glucose 117 mg/dl (70-99); Potassium 4.5 mmol/L (3.5-5.1); Sodium 134 mmol/L (135-145); eGFR > 60.00
--- NOTE | 2024-04-05 07:19 | W.PN.CARDCBS ---
Addendum entered and electronically signed by Shahab Little MD 04/05/24 08:43:
Patient offers no complaints
PMH/PSH/FH/SH: Reviewed
Allergies: Atorvastatin
Outpatient meds alfuzosin, 5 twice daily, aspirin 81 mg a day, eplerenone 25 a day, Pepcid 40 daily, hydralazine 50 mg twice daily, Imdur 30 mg a day, Linzess, omega-3, pantoprazole, valsartan 320
Current meds: Reviewed, metoprolol ER and Eliquis are new
ROS: Negative except as above
162/68, pulse 57
No distress, head neck exam unremarkable, lungs are clear regular rate and rhythm no murmurs, extremities without clubbing cyanosis or edema distal pulses intact neuro, nonfocal, abdomen benign
Telemetry: Sinus rhythm
EKG normal sinus rhythm, EKG
Chest x-ray: Reviewed 8.6 platelets 220, sodium 134, BUN/creatinine 22 and 0.9, troponin 0.013
Impression:
Presented with palpitations, heart racing
Paroxysmal atrial fibrillation - newly diagnosed
5 second conversion pause
CAD
RCA PCI x2 03/01/23HTN
GERD
prediabetes
HOSSEIN
Family history of CAD
Former smoker
Plan:
Doing well from cardiac standpoint. Okay for discharge.
Recommended cardiac medications at discharge:
Amlodipine 5 mg twice daily
Aspirin 81 mg daily
Eplerenone 25 mg daily
Famotidine 40 mg daily
Hydralazine 50 mg twice daily
Rosuvastatin 20 mg a day
Isosorbide mononitrate 30 mg daily
Valsartan 320 mg a day
Eliquis 5 mg twice daily (new)
Metoprolol ER 12.5 mg daily (new)
Stop omega-3 fatty acids
Patient should follow-up to Dr. Horne.
Importance of weight loss emphasized to prevent recurrences of atrial fibrillation
Original Note:
Today's Communication / Plan
-
Toprol 12.5mg daily for rate control.
Eliquis 5mg BID for AC
Follow up arranged
Stable for discharge
Impression / Plan
-
PCP: Dr. Robles
Cardiology: Dr. Horne
Impression:
Presented with palpitations, heart racing
Paroxysmal atrial fibrillation - newly diagnosed
5 second conversion pause
CAD
RCA PCI x2 03/01/23
HTN
GERD
prediabetes
HOSSEIN
Family history of CAD
Former smoker
Lexiscan nuclear stress test 03/02/2024: Perfusion images revealed a small, very mild defect in the basal inferior on rest images which normalizes on both stress and prone imaging. No scan evidence of ischemia, scar, or infarct. EF 63%.
ECHO 03/05/2023: EF 70 to 75%, mild concentric LVH, hyperdynamic LV, mildly dilated right atrium, mild TR, PAP 42 mmHg
Plan:
-Presented with palpitations/heart racing and found to be in new rapid atrial fibrillation.
-CV attempted x3 in ER and unsuccessful. Spontaneously converted to SR in AM 04/04. 5 second conversion pause noted on telemetry. Asymptomatic.
-HR stable, starting low dose Toprol 12.5mg for rate control. No further pauses or significant bradycardia noted.
-Eliquis 5mg BID started in PM 04/04. CM assessed the cost and patient is agreeable. CHADSVASC score 4.
-Recent echo 03/05 with preserved EF and no significant valvular disease. No need to repeat at this time.
-Continue Imdur, hydralazine, and valsartan.
-OK for discharge. Follow up has been arranged with primary specification manager.
HPI: Gabino is a 74 year old male with PMH of CAD s/p RCA PCI, HTN, GERD, prediabetes, HOSSEIN, and former tobacco abuse who [facility]. He reports he was working around the house yesterday and then when he went
to get a shower at night, noticed that his heart was racing. He then sat down in his recliner to see if relaxing would help bring his HR down, however it continued to be elevated and he checked his [email or web address] device. This showed possible afib
which he reports he has never seen before. Due to persistent tachycardia and heart racing with possible afib on [email or web address] mobile, he decided to come to ER for evaluation. In ER, he was found to be in rapid atrial fibrillation which is a new diagnosis
for patient. CV was attempted in ER, however was unsuccessful. He then was started on Cardizem gtt and admitted for further evaluation and management. This AM, he spontaneously converted to SR while sleeping. > 5 second conversion pauses noted on
telemetry. He remains in SR at this time and feels well.
Progress Note - Hotel Server
Subjective
Date of Service: April 05, 2024
Feeling well this AM. No complaints.
Objective
Labs:
04/05/24 03:23
04/05/24 03:23
Labs
Hgb 13.6 g/dL (13.0-18.0) 04/05/24 03:23
Hct 38.6 % (39.0-52.0) L 04/05/24 03:23
Plt Count 220 10^3/uL (130-400) 04/05/24 03:23
Sodium 134 mmol/L (135-145) L 04/05/24 03:23
Potassium 4.5 mmol/L (3.5-5.1) 04/05/24 03:23
BUN 22 mg/dl (9-20) H 04/05/24 03:23
Creatinine 0.9 mg/dL (0.7-1.3) 04/05/24 03:23
Glucose 117 mg/dl (70-99) H 04/05/24 03:23
Troponins
04/03/24 04/04/24 04/04/24
22:25 03:43 10:15
Troponin I < 0.012 0.029 D 0.013 D
04/04/24 04/04/24
15: 21:22
Troponin I Cancelled Cancelled
Vital Signs and I&O:
Vital Signs
Temp Pulse Resp BP Pulse Ox
98.4 F 57 18 162/68 95
04/05/24 03:16 04/05/24 04:45 04/05/24 03:16 04/05/24 03:15 04/05/24 03:15
Vital Signs
Temp Pulse Resp BP Pulse Ox
98.4 F 57 18 162/68 95
04/05/24 03:16 04/05/24 04:45 04/05/24 03:16 04/05/24 03:15 04/05/24 03:15
Physical Exam
Physical Exam
GEN: No distress, awake, alert, oriented x3
HEENT: supple, anicteric, mmm
LUNGS: CTA b/l, no wheezes/rales
CV: Reg, S1/S2, no murmur
EXT: No clubbing, cyanosis, or edema
NEURO: Gross non-focal
SKIN: Warm, dry, no rash
[2024-04-05 07:22] VITALS: BP 152/65
[2024-04-05] MEDS: ELIQUIS 5 MG PO (08:46)
[2024-04-05 08:47] VITALS: BP 148/68
[2024-04-05] MEDS: IMDUR (EXTENDED RELEASE) 30 MG PO (08:47)
[2024-04-05] MEDS: NORVASC 5 MG PO (08:47)
[2024-04-05] MEDS: LOW STRENGTH ASPIRIN 81 MG PO (08:47)
[2024-04-05] MEDS: APRESOLINE 50 MG PO (08:48)
[2024-04-05] MEDS: TOPROL XL 12.5 MG PO (08:48)
[2024-04-05] MEDS: DIOVAN 320 MG PO (08:56)
--- NOTE | 2024-04-05 09:51 | W.PN.HOSP.TC ---
Today's Communication/Plan
-
dc now
Assessment / Plan
Assessment / Plan
New onset AF with RVR and associated chest discomfort: Not on OAC, started during this hospitalization
Hypertensive at time
- failed attempted CV x 3 to sustained NSR
- started on a Diltiazem gtt with conversion back into NSR
- DCA card consult input appreciated
will be started on Eliquis 5 mg bid, confirmed with cardio that they want pt on both ASA and Eliquis for now
P: reviewed with Dr. Little, apparently pt had stopped the Crestor, they want this resumed
HX Chest Pain but recent Lexiscan for CP without evidence of scan ischemia or scar (03/02/24)
HX CAD with stent in February 2023
- TPNI 0.029-->0.013
- cont. aspirin
Essential HTN
- cont. amlodipine, eplerenone, hydralazine and valsartan
Toprol XL 12.5 mg will be added
Hyperlipidemia
- cont Crestor
Prediabetic
- A1C 6.1 on 03/02/24
- Diet control
- will need follow up with PCP
GERD
- cont famotidine and Protonix
BPH
- cont alfuzosin
DVT Px : Lovenox
Code Status: Full Code
IP TLM
DC now
fully reviewed with pt
More than 30 minutes spent in discharge including
Final examination of the patient
Summarizing hospital stay
Instructions for continuing care to all relevant caregivers
Preparation of discharge records, prescriptions, and referral forms
Total time spent (in minutes): 45
Anticipated Discharge: Today
Subjective/Interval History
-
Date of Service: April 05, 2024
Feels well, no chest pain
Objective Data
-
Labs:
Laboratory Results
04/05/24
03:23
WBC 7.7
Hgb 13.6
Hct 38.6 L
Plt Count 220
Sodium 134 L
Potassium 4.5
Chloride 101
Carbon Dioxide 21 L
BUN 22 H
Creatinine 0.9
Glucose 117 H
Calcium 9.8
Vital Signs:
Vital Signs
Temp Pulse Resp BP Pulse Ox
98.4 F 91 20 148/68 98
04/05/24 07:19 04/05/24 08:56 04/05/24 07:19 04/05/24 08:56 04/05/24 07:19
Review of Systems
-
History Source: Patient, Physician (reviewed with Dr. Little) and Coordinated Provider
Constitutional: Denies Fever
EENT: Reports No Symptoms Reported
Respiratory: Reports No Symptoms
Cardiac: Reports No Symptoms; Denies Chest Pain or Palpitations (resolved)
Abdomen/GI: Reports No Symptoms
Genitourinary: Reports No Symptoms
Physical Exam
-
General: Well Developed, Well Nourished and No Apparent Distress
HEENT: Normocephalic, Atraumatic and Moist Mucous Membranes
Respiratory: Clear to Auscultation; Negative Wheezes, Rales or Rhonchi
Cardiac: Regular Rhythm, S1/S2 and Murmur (2/6sem)
GI: Soft, Nontender and Nondistended
Musculoskeletal: No Clubbing, No Cyanosis and No Edema
Neuro: Awake, Alert and Oriented
--- NOTE | 2024-04-05 11:02 | PTCARENOTE ---
Rec'd pt this AM AOx3, on cafeteria monitor in NSR. Pt denies any pain or palpitations and was agreeable to reporting at discomfort or palpitations. Discussed AFIB w pt, pt verbalized understanding of medications and reporting chest palpitations. Pt
getting d/c home today, however pt's pharmacy has lisinopril shortage. Attending instructed to call hospital pharmacy to request two doses for tonight and tomorrow morning. Call jhaveri within reach and pharmacy contacted. Plan of care ongoing.
[2024-04-05 11:04] VITALS: BP 142/56
[2024-04-05 13:14] VITALS: BP 138/66
--- NOTE | 2024-04-05 14:23 | PTCARENOTE ---
Pt d/c home with spouse. R hand IV taken out and library monitor taken off. Sat down with patient and reviewed d/c instructions and upcoming follow up appointments and pt was able to teach back about next dosage times and action of each med. RN
informed pt on the importance of Eliquis regimen and pt verbalized understanding. Pt escorted down to lobby by staff and helped into car with with spouse driving home.
--- NOTE | 2024-04-05 17:55 | W.DS.TRANS ---
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
-
Discharge Instructions:
Discharge Diagnosis/Procedures Atrial Fibrillation with rvr
Diet Low Sodium
Activity No strenuous activity
Driving Restrictions Not until seen by your Dr
Bathing Restrictions None
Blood Work CBC, CMP, Lipid Profile in 2-3 weeks
Instructions:
Stand-Alone Forms:
Changes to Home Medications: Yes
Discharge Medications:
DC Medications w/original date entered in [facility]
amlodipine 5 mg tablet 5 mg PO BID Blood Pressure 02/28/23
eplerenone 25 mg tablet 25 mg PO DAILY Lung/Breathing Issues 02/28/23
famotidine 40 mg tablet 40 mg PO DAILY Gastrointestinal Issue 02/28/23
pantoprazole 40 mg tablet,delayed release (Protonix) 40 mg PO DAILY Gastrointestinal Issue ##0 02/28/23
valsartan 320 mg tablet 320 mg PO DAILY Blood Pressure 02/28/23
aspirin 81 mg chewable tablet 81 mg PO DAILY 30 days #30 tabs 03/02/23
hydralazine 50 mg tablet 50 mg PO BID #60 tabs 03/02/23
Focus Factor 1 cap PO DAILY Supplement 03/05/23
lutein 20 mg capsule 20 mg PO DAILY Supplement 03/05/23
milk thistle 175 mg tablet 175 mg PO DAILY Supplement 03/05/23
pantothenic acid (vit B5) 250 mg tablet 250 mg PO DAILY Supplement 03/05/23
therapeutic multivitamin 1 tab PO DAILY Supplement 03/05/23
vitamin B complex 1 cap PO DAILY Supplement 03/05/23
Zeaxatine 4 mg PO DAILY Supplement 03/01/24
alfuzosin 10 mg tablet,extended release 24 hr 10 mg PO HS Urinary Issue 03/01/24
linaclotide 145 mcg capsule (Linzess) 145 mcg PO DAILY Constipation 03/01/24
isosorbide mononitrate 30 mg tablet,extended release 24 hr 30 mg PO DAILY #30 tabs 03/02/24
apixaban 5 mg tablet (Eliquis) 5 mg PO BID #60 tabs 04/05/24
metoprolol succinate 25 mg tablet,extended release 24 hr 12.5 mg (1/2 x 25 mg) PO DAILY #30 tabs 04/05/24
rosuvastatin 20 mg tablet 20 mg PO QPM #30 tabs 04/05/24
Home Medication Changes
Eliquis and Toprol started
He is to stop his [place] [address]
Pending Results: No
== END 2024-04-05 14:51 | disposition home or self-care (01) | DRG 310 ==
LOC: IVU 02:58
PROVIDERS: ADMITTING PHYSICIAN Internal Medicine; ATTENDING PHYSICIAN Internal Medicine; EMERGENCY PHYSICIAN Emergency Medicine; FAMILY PHYSICIAN Internal Medicine; OTHER PHYSICIAN Internal Medicine Cardiovascular Disease
PROC: 5A2204Z Restoration of Cardiac Rhythm, Single (ICD-10-PCS; 2024-04-03)
DX: I48.0 Paroxysmal atrial fibrillation (principal); I10 Essential (primary) hypertension; I25.10 Atherosclerotic heart disease of native coronary artery without angina pectoris; Z95.5 Presence of coronary angioplasty implant and graft; E78.5 Hyperlipidemia, unspecified; K21.9 Gastro-esophageal reflux disease without esophagitis; N40.0 Benign prostatic hyperplasia without lower urinary tract symptoms; F41.9 Anxiety disorder, unspecified; G47.33 Obstructive sleep apnea (adult) (pediatric); R73.03 Prediabetes; Z79.82 Long term (current) use of aspirin; Z79.899 Other long term (current) drug therapy; Z87.891 Personal history of nicotine dependence; Z82.49 Family history of ischemic heart disease and other diseases of the circulatory system
CPT/HCPCS: 71046; 80048; 80053; 80061; 83880; 84484; 85025; 85027; 93005; 99285

== ENCOUNTER 2024-04-07 02:08 | Inpatient (IN) | payer MEDICARE, OTHER, SELFPAY ==
[2024-04-06 21:34] VITALS: BP 171/91
[2024-04-06 22:07] VITALS: BP 144/72; BMI 29.0
[2024-04-06 22:23] LABS: % Basophils 0.5 % (0-2); % Eosinophils 1.6 % (0-6); % Immature Granulocytes 0.4 % (0-0.5); % Lymphocytes 17.3 % (20.5-51.1); % Monocytes 13.2 % (1.7-9.3); Absolute Eosinophils 0.1 10^3/uL (0-0.7); Absolute Lymphocytes 1.4 10^3/uL (1.2-3.4); Absolute Monocytes 1.1 10^3/uL (0.1-0.6); Absolute Neutrophils 5.5 10^3/uL (1.4-6.5); Hematocrit 38.6 % (39.0-52.0); Hemoglobin 13.9 g/dL (13.0-18.0); Mean Corpuscular Hgb 30.9 pg (27.0-31.0); Mean Corpuscular Volume 85.8 fL (80.0-94.0); Nucleated Red Blood Cells % 0 % (-); Platelet Count 201 10^3/uL (130-400); Red Cell Dist. Width 12.3 % (11.5-14.5); White Blood Cell Count 8.3 10^3/uL (4.8-10.8)
[2024-04-06] MEDS: CARDIZEM 10 MG IV (22:28)
[2024-04-06] MEDS: CARDIZEM 125 IV (22:29)
[2024-04-06 22:52] LABS: ALT (SGPT) 34 U/L (0-50); AST (SGOT) 34 U/L (17-59); Albumin 5.2 g/dl (3.5-5.0); Alkaline Phosphatase 50 U/L (38-126); Blood Urea Nitrogen 24 mg/dl (9-20); Calcium 9.7 mg/dl (8.4-10.2); Carbon Dioxide 23 mmol/L (22-30); Chloride 101 mmol/L (98-107); Estimated Creatinine Clearance 65 ml/min; Glucose 126 mg/dl (70-99); Potassium 4.5 mmol/L (3.5-5.1); Sodium 133 mmol/L (135-145); Total Bilirubin 0.9 mg/dl (0.2-1.3); Total Protein 7.7 g/dl (6.3-8.2); eGFR > 60.00
[2024-04-06 23:00] VITALS: BP 135/61
[2024-04-07] VITALS (15 sets, daily range): BP systolic 107–152; BP diastolic 52–69; BMI 29.0; BMI 29.2
--- NOTE | 2024-04-07 00:33 | ED.GENMED ---
History of Present Illness
General
Chief Complaint: Heart Rate Problem
Source: patient and spouse
Time Seen by Provider: 04/06/24 22:04
History of Present Illness
History of Present Illness:
74-year-old male who presents feeling palpitations. Also reports feeling tightness in his chest and short of breath similar to the way he felt when he went into A-fib just the other day. He was released on the after he was here rapid A-fib.
Patient had an attempted emergency department cardioversion that was unsuccessful. Subsequently he converted on his own after 24 hours on Cardizem drip. He was sent home on metoprolol 12.5 mg. The patient admits that he does get fatigued on
metoprolol. He is anticoagulated. He currently feels a little bit better here in the emergency department. Denies syncope. Denies melena or hematochezia.
Past History
Past History
ED Past Medical History: Arrthythmia (Atrial fibrillation), CAD, GERD, HTN and Other (Prediabetic, borderline cholesterol, anxiety, obstructive sleep apnea and uses CPAP)
ED Past Surgical History: Tonsilectomy; Negative Cardiac
Social History
Tobacco: Non-smoker
Alcohol: None
Drug: None
Personal:
Living: with family
Employment: Retired
Family History
Family History: Hypertension
Phy Exam
Physical Exam
Physical Exam:
CONSTITUTIONAL Patient alert and oriented to person, place and time. Well-appearing. Vital signs reviewed.
HEAD atraumatic, normocephalic.
EYES eyelids normal to inspection, Extraocular muscles intact, Conjunctiva normal, Sclera normal.
NECK normal range of motion, Trachea midline, no jugular venous distention.
RESPIRATORY CHEST No respiratory distress noted, Chest expansion equal, Bilateral breath sounds clear.
CARDIOVASCULAR irregularly irregular and tachycardic, Heart sounds normal.
ABDOMEN No distention.
BACK normal inspection, no obvious deformities
UPPER EXTREMITY range of motion normal, Motor strength normal, no cyanosis, no edema.
LOWER EXTREMITY range of motion normal, Motor strength normal, no cyanosis, no edema.
NEURO Speech normal, No focal motor deficits, Christiana coma scale 15, Memory normal, Cranial Nerves intact to screening exam.
SKIN skin warm, dry, and normal in color.
PSYCHIATRIC patient oriented to person place and time, Normal affect.
Course
Orders/Labs/Results
Orders:
Orders
04/06/24 21:33
ECG [Electrocardiogram (*1)] Urgent
Reason for Study: Atrial Fibrillation
Other Reason for Exam: chest pain
04/06/24 21:34
EKG- Treatment ONCE
04/06/24 21:43
Electrocardiogram (*1) Urgent
Reason for Study: Other
Other Reason for Exam: Respiratory Distress
Cardiac Monitoring- Treatment ONCE
EKG- Treatment ONCE
IV Insert/Care/Rem.- Treatment PRN
O2 Therapy [RESP] Urgent
Titrate/Wean O2 to maintain O2 sat greater than (%): 93
Special Instructions: TO MAINTAIN CONTINUOUS O2 SATS >/= 93%
Pulse Ox/cont/shift [RESP] Urgent
Quantity: 1
Special Instructions: continuous pulse ox
04/06/24 22:17
Complete Blood Count/With Diff Urgent
Comprehensive Metabolic Panel Urgent
04/06/24 22:23
Diltiazem 125 mg/125 ml Nss [Cardizem] 125 mg in 125 ml IV NOW
Initial dose in mg/hr, then titrate:: 5
Titrate to keep:: Heart rate 80-100 bpm
Titrate by mg/hr:: 5 mg/hr
Frequency of titrations (minutes):: 15
Maximum dose in mg/hr:: 15
Diltiazem HCl [Cardizem] 10 mg IV NOW STA
04/07/24 00:33
Diltiazem HCl [Cardizem] 10 mg IV NOW STA
04/07/24 01:59
Admit/Transfer Patient As Directed
Co-Sign Provider:
Level of Care: Inpatient admission
Assign to:: IVU
Physician / Group: Benoit
Diagnosis: A-Fib
Reason for Hospitalization: A-Fib with RVR
Expected length of stay greater than two midnights?: Yes
ELOS- Estimated Length of Stay in days: 2
I certify the patient meets the requirements for IP care: Yes
PRN Pain Medication Management As Directed
May give lesser potent ordered pain med per pt: Yes
preference::
Protocol:: Medication orders for pain may be administered in a
manner that supports deferring to patient preference
when the pt is:
- Requesting an ordered lesser potent pain medication.
Least to most potent pain medications are defined
as: acetaminophen < NSAID < tramadol < opioids
(morphine, oxycodone, hydromorphone).
- Requesting a lesser dose of the same medication IF
ORDERED.
- Requesting a less intrusive route of administration
if both routes are prescribed by the provider (PO <
IV).
04/07/24 02:00
Code Status As Directed
Resuscitation Status: Full Code
04/07/24 03:29
Acetaminophen [Tylenol] 650 mg PO Q4HPRN PRN
Diltiazem 125 mg/125 ml Nss [Cardizem] 125 mg in 125 ml IV PER PROTOCOL
Currently infusing. Continue current dose and titrate:: Yes
Titrate to keep:: Heart rate 80-100 bpm
Titrate by mg/hr:: 5 mg/hr
Frequency of titrations (minutes):: 15
Maximum dose in mg/hr:: 15
Nitroglycerin Sublingual [Nitrostat (Sublingual)] 0.4 mg SL [id number] PRN
04/07/24 03:29
CARDIOLOGY CONSULT Routine
Consulting Provider: Richard,Handy C.
Was physician already notified: No
Reason for consult: A-Fib with RVR
Consult Notification Routine
Specialty to Notify: Cardiology
Activity As Directed
Activity Level: Ambulate
With Assistance
Bladder Scan As Directed
Follow Bladder Retention/Intermittent Cath Algorithm?: Yes
PRN if no void in __ hours: 6
Frequency: Per Retention Algorithm
If Bladder Scan Result >: 400
then:: Straight cath
EKG with chest pain [ECG as needed] As Directed
ECG as needed for:: Chest Pain
I/O [Intake/ Output] As Directed
Frequency: Per unit guidelines
Straight Cath As Directed
Frequency: Per Retention Algorithm
Additional Instructions: straight cath as needed per acute urinary retention algorithm for 24 hrs
Additional Instructions: for bladder scan greater than 400 mL
Vital Signs As Directed
Frequency: Per unit guidelines
Weight As Directed
Frequency: Daily
Oxygen Therapy [O2 Therapy] [RESP] Routine
Titrate/Wean O2 to maintain O2 sat greater than (%): 94
04/07/24 03:51
Basic Metabolic Panel IN AM
Complete Blood Count/No Diff IN AM
Troponin I Q6H
04/07/24 06:00
EKG [Electrocardiogram (*1)] IN AM
Reason for Study: Chest Pain
NPO
Allow oral meds: Yes
Allow clear liquids: Sips of Clears
Linaclotide [Linzess] 145 mcg PO DAILY@0600
04/07/24 08:00
Amlodipine [Norvasc] 5 mg PO BID
Apixaban [Eliquis] 5 mg PO BID
Aspirin Chewable [Low Strength Aspirin] 81 mg PO DAILY
Eplerenone [Inspra] 25 mg PO DAILY
Famotidine [Pepcid] 40 mg PO DAILY
HydrALAZINE [Apresoline] 50 mg PO BID
ISOSORBIDE MONOnitrate ER [Imdur (Extended Release)] 30 mg PO DAILY
Metoprolol Xl [Toprol Xl] 12.5 mg PO DAILY
Valsartan [Diovan] 320 mg PO DAILY
04/07/24 09:29
Troponin I Q6H
04/07/24 15:29
Troponin I Q6H
04/07/24 18:00
Rosuvastatin Calcium [Crestor] 20 mg PO QPM
04/07/24 22:00
Tamsulosin [Flomax] 0.4 mg PO HS
Abnormal Lab Results
04/06/24
22:17
RBC 4.50 L 10^6/uL
(4.70-6.10)
Hct 38.6 L %
(39.0-52.0)
MPV 11.0 H fL
(7.4-10.4)
Absolute Monos (auto) 1.1 H 10^3/uL
(0.1-0.6)
Lymphocytes % 17.3 L %
(20.5-51.1)
Monocytes % 13.2 H %
(1.7-9.3)
Sodium 133 L mmol/L
(135-145)
BUN 24 H mg/dl
(9-20)
Glucose 126 H mg/dl
(70-99)
Albumin 5.2 H g/dl
(3.5-5.0)
04/06/24 22:17
04/06/24 22:17
Vital Signs
Initial and Last Documented VS:
Initial Vital Signs
Temp Pulse Resp BP Pulse Ox
97.8 F 128 24 171/91 96
04/06/24 21:34 04/06/24 21:34 04/06/24 21:34 04/06/24 21:34 04/06/24 21:34
Last Documented Vital Signs
Temp Pulse Resp BP Pulse Ox
97.7 F 68 18 140/66 96
04/07/24 03:24 04/07/24 03:00 04/07/24 03:24 04/07/24 03:00 04/07/24 03:24
MDM/Problems Addressed
MDM/Problems Addressed:
Atrial fibrillation with RVR
*Pulse Oximetry
Patient hypoxic: no
*EKG
Interpreted by ED Provider?: Yes
Interpretation: abnormal
Rate: tachycardiac
Rhythm: a-fib
Henderson: normal axis
QRS Pattern: normal QRS
Ischemia: no ischemia
*Tree Surgeon Interpretation
Rate: tachycardiac
Interpretation: abnormal
Rhythm: a-fib
*Critical Care Note
Total Time (30-74mins, 75-104mins- exclusive of procedures): 30 minutes
Data Reviewed
Review of Other/Old Records Reveals: Discharge Summary (Discharge summary from April 05) and Other (Cardiology notes from March 2024)
Source: patient and spouse
Further Testing Considered But Not Given:
Consider cardioversion but failed in the emergency department on recent visit.
Patient Management
Discussion with other providers: Hospitalist and Poultry Offal Worker (Discussed Dr. Ramos. Failed on recent visit and for emergency department cardioversion. At this time his rate is controlled but is quite symptomatic in A-fib. Admit.)
ED Attending Note
-
Portions of this chart may have been created with voice recognition software.� Occasional wrong word or��sound alike� substitutions may have occurred due to the inherent limitations of voice recognition software.
Discharge Plan
Departure
Patient Disposition: Admit
Date of Disposition: 04/07/24
Time of Disposition: 00:34
Admit to: Telemetry
Presentation/result/management discussed w/ accepting MD/DO: Hospitalist
Discharge Problem:
Atrial fibrillation with RVR
Interventions
Interventions:
*Risk Screen - Suicide Last Done: 04/07/24 03:28
*General Assessment Last Done: 04/06/24 22:10
*Neglect/Abuse Screening Last Done: 04/06/24 22:10
ED- Fall Risk Assessment Last Done: 04/06/24 22:10
*ED COVID-19 Vaccine History Last Done: 04/07/24 03:24
*Nursing Disposition Last Done: 04/07/24 03:22
ED- Cardiac Assessment Last Done: 04/06/24 22:10
ED- Pulmonary Assessment Last Done: 04/06/24 22:10
Discharge Date and Time
Discharge Date/Time: 04/07/24 03:23
[2024-04-07] MEDS: CARDIZEM 10 MG IV (00:40)
--- NOTE | 2024-04-07 02:02 | HPS.HSE ---
Family Physician
-
Family Physician: Kamari Robles
Chief Complaint
-
Palpitations / Chest Tightness
History of Present Illness
Patient is a 74y M with PMH significant for ASCVD, HTN and A-Fib with hospitalization 04/04 - 04/05 who presents to ED complaining of recurrent symptoms of chest tightness, palpitations, dyspnea and diaphoresis this evening. Patient states that
symptoms occurred while in the shower - similar to his prior episode. No history of A-Fib prior to symptoms on 04/04. Patient seen in the ED at that time. DCCV x 3 was attempted without success and patient was admitted on Cardizem gtt. Patient
was started on low dose metoprolol (history of fatigue / intolerance to beta-blockers) and Eliquis and discharged to home.
Medical History
Past Medical History
Past Medical History: Reports Other
Additional Past Medical History:
Coronary Artery Disease s/p Stent in February 2023
Hypertension
Hyperlipidemia
Paroxysmal Atrial Fibrillation
Anxiety
GERD
BPH
Obstructive Sleep Apnea
Past Surgical History: Reports Other
Additional Past Surgical History:
PTCA with Stent
Social History
Tobacco: Former Smoker
Alcohol: None
Family History
Family History: Not pertinent
Allergies / Home Medications
Allergies reflects when Allergies were last updated in [facility].
Home Medications with original date entered in [facility]
Allergy/Medication List:
Allergies
Allergy/AdvReac Type Severity Reaction Status Date / Time
atorvastatin Allergy SEE BELOW Verified 04/04/24 16:40
Home Medications
amlodipine 5 mg tablet 5 mg PO BID Blood Pressure 02/28/23
eplerenone 25 mg tablet 25 mg PO DAILY Lung/Breathing Issues 02/28/23
famotidine 40 mg tablet 40 mg PO DAILY Gastrointestinal Issue 02/28/23
pantoprazole 40 mg tablet,delayed release (Protonix) 40 mg PO DAILY Gastrointestinal Issue ##0 02/28/23
valsartan 320 mg tablet 320 mg PO DAILY Blood Pressure 02/28/23
aspirin 81 mg chewable tablet 81 mg PO DAILY 30 days #30 tabs 03/02/23
hydralazine 50 mg tablet 50 mg PO BID #60 tabs 03/02/23
Focus Factor 1 cap PO DAILY Supplement 03/05/23
lutein 20 mg capsule 20 mg PO DAILY Supplement 03/05/23
milk thistle 175 mg tablet 175 mg PO DAILY Supplement 03/05/23
pantothenic acid (vit B5) 250 mg tablet 250 mg PO DAILY Supplement 03/05/23
therapeutic multivitamin 1 tab PO DAILY Supplement 03/05/23
vitamin B complex 1 cap PO DAILY Supplement 03/05/23
Zeaxatine 4 mg PO DAILY Supplement 03/01/24
alfuzosin 10 mg tablet,extended release 24 hr 10 mg PO HS Urinary Issue 03/01/24
linaclotide 145 mcg capsule (Linzess) 145 mcg PO DAILY Constipation 03/01/24
isosorbide mononitrate 30 mg tablet,extended release 24 hr 30 mg PO DAILY #30 tabs 03/02/24
apixaban 5 mg tablet (Eliquis) 5 mg PO BID #60 tabs 04/05/24
metoprolol succinate 25 mg tablet,extended release 24 hr 12.5 mg (1/2 x 25 mg) PO DAILY #30 tabs 04/05/24
rosuvastatin 20 mg tablet 20 mg PO QPM #30 tabs 04/05/24
Review of Systems
-
History Source: Patient
A 12 point ROS was completed and negative except as noted: Yes
Constitutional: Reports Fatigue; Denies Fever or Chills
Respiratory: Reports Trouble Breathing; Denies Cough
Cardiac: Reports Chest Pain, Diaphoresis and Palpitations; Denies Syncope
Abdomen/GI: Denies Abdominal Pain, Nausea, Vomiting or Diarrhea
: Denies Dysuria, Frequency or Flank Pain
Musculoskeletal: Denies Joint Pain or Edema
Neurological: Reports Dizzy; Denies Headache
Psych: Denies Depression or Anxiety
Physical Exam
Vital Signs
Vital Signs
Temp Pulse Resp BP Pulse Ox
97.8 F 82 26 131/65 97
04/06/24 21:34 04/07/24 00:40 04/07/24 00:30 04/07/24 00:40 04/07/24 00:30
Physical Exam
General: Other (74y M in no acite distress.)
HEENT: Moist mucous membranes and PERRLA
Respiratory: Clear; No Wheezes, Rales or Rhonchi
Cardiac: S1/S2 and Irregular Rhythm; No Murmur
GI: Soft, Non Tender, Non Distended and Normal Bowel Sounds
Musculoskeletal: No Clubbing, No Cyanosis and No Edema
Neuro: AO x 3
Laboratory Results
-
04/06/24 22:17
04/06/24 22:17
Laboratory Results
Total Bilirubin 0.9 mg/dl (0.2-1.3) 04/06/24 22:17
AST 34 U/L (17-59) 04/06/24 22:17
ALT 34 U/L (0-50) 04/06/24 22:17
Alkaline Phosphatase 50 U/L (38-126) 04/06/24 22:17
Troponin I Cancelled 04/06/24 21:43
Impression/Plan
-
A/P: Patient is a 74y M with PMH significant for ASCVD, HTN and paroxysmal A-Fib who presents to ED complaining of palpitations, chest tightness and dyspnea.
Paroxysmal Atrial Fibrillation with Rapid Ventricular Rates
- Admit for further evaluation and treatment.
- Restart Cardizem gtt and titrate as needed for rate control.
- Continue other CV medications including low-dose metoprolol / Eliquis / etc.
- Cardiology evaluation in the AM for additional recommendations.
- Patient has history of poor tolerance to beta-blockers, so titrating this dose may not be possible.
ASCVD
- Chest tightness this evening likely related to rate / rapid A-Fib.
- No obvious ischemic noted on EKG.
- Follow serial troponin.
- Continue daily ASA, statin, etc.
Benign Hypertension
- Patient on muti-drug regimen for BP control.
- Continue outpatient medications with holding parameters and adjust as needed for BP control.
GERD
- Stable. Continue H2-florencia.
BPH
- Stable. Continue alfluzosin.
DVT Prophylaxis: On Eliquis
Code Status: Full
[2024-04-07 04:06] LABS: Hematocrit 39.5 % (39.0-52.0); Hemoglobin 13.9 g/dL (13.0-18.0); Mean Corp Hgb Conc. 35.2 g/dL (33.0-37.0); Mean Corpuscular Hgb 31.2 pg (27.0-31.0); Mean Corpuscular Volume 88.6 fL (80.0-94.0); Mean Platelet Volume 10.7 fL (7.4-10.4); Platelet Count 202 10^3/uL (130-400); Red Blood Cell Count 4.46 10^6/uL (4.70-6.10); Red Cell Dist. Width 12.1 % (11.5-14.5); White Blood Cell Count 8.6 10^3/uL (4.8-10.8)
[2024-04-07 04:28] LABS: Blood Urea Nitrogen 19 mg/dl (9-20); Calcium 9.7 mg/dl (8.4-10.2); Carbon Dioxide 22 mmol/L (22-30); Chloride 104 mmol/L (98-107); Estimated Creatinine Clearance 73 ml/min; Glucose 129 mg/dl (70-99); Potassium 4.3 mmol/L (3.5-5.1); Sodium 137 mmol/L (135-145); eGFR > 60.00
[2024-04-07 04:40] LABS: Troponin I 0.014 ng/ml
--- NOTE | 2024-04-07 05:53 | PTCARENOTE ---
Rec'd pt. into room 2254 from ED at 0315 initially in A-fib in the 80's, Cardizem gtt running at 10 mg/hr, other vitals stable. At 0402 pt. converted to SB in the 50's (EKG completed), Cardizem decreased to 5mg/hr and hospitalist ROHIT Frazier
notified. Instructed by Karin to leave drip running but then HR decreased into the high 40's (Cardizem then dropped to 2.5mg/hr per Karin) and then HR dipping into the 30's. Infusion shut off at 0500 (Karin aware). Pt. remains SB, current rate 46.
Otherwise pt. very pleasant, states that since he converted to NSR his chest tightness has completely resolved. Plan of care or care discussed with patient, understanding verbalized. Pt. currently sleeping.
[2024-04-07] MEDS: LINZESS 145 MCG PO (06:31)
--- NOTE | 2024-04-07 08:17 | W.CARD.TIKOS ---
Initiate Tikosyn
-
I verify that the patient has not taken any verapamil (Isoptin/Calan), ketoconazole (Nizoral), cimetidine (Tagamet), trimethoprim (Trimpex), trimethoprim/sulfamethoxazole (Bactrim), megesterol (Megace), prochlorperazine (Compazine),
hydrochlorothiazide (HCTZ), dolutegravir (Tivicay) or any Class I or Class III anti-arrhythmic within the last three days
AND
I verify that the patient has not taken amiodarone within the last THREE months, or that the patient's amiodarone plasma concentration is <0.3 mcg/mL.
Creatinine 0.8 mg/dL (0.7-1.3) 04/07/24 03:51
Estimated Creat Clear 73 ml/min 04/07/24 03:51
Does patient have a Ventricular Conduction Abnormality: No
I have assessed the baseline QTc interval (using QT for heart rate less than 60 bpm) and deemed the patient is appropriate for Dofetilide therapy. I understand that Tikosyn is contraindicated if the QTc is >440msec (500msec in patients with
ventricular conduction abnormalities).
Baseline QTc (in msec): 411
QTc interval is greater than 440msec without conduction abnormality OR greater than 500msec with a conduction abnormality, but acceptable to proceed per Cardiology attending.
Ordering Physician: Handy Ramos
--- NOTE | 2024-04-07 08:26 | CON.CAR ---
Consultation
Consultation Request
Date/Time Consultation Requested: 04/06/2024 20: 00
Date/Time Consultation Performed: 04/07/2024 8: 00
Requesting Provider: Dank
Performing Provider: Richard
Reason for Consultation: Atrial fibrillation
Medical History
-
History of Present Illness:
HPI: Gabino is a 74 year old male with PMH of CAD s/p RCA PCI, HTN, GERD, prediabetes, HOSSEIN, former tobacco abuse, afib. He was discharged on 04/05 after an admission for atrial fibrillation. During that admission he was attempted to be
cardioverted x 3 in the ER without success and he subsequently spontaneously converted to sinus rhythm during that admission. Eliquis was started at that time. He presents with palpitations and recurrent atrial fibrillation. He has spontaneously
converted to sinus rhythm. He denies chest pain, short of breath, palpitations.
PMH:
CAD
RCA PCI x2 03/01/23
Atrial fibrillation on Eliquis
HTN
GERD
prediabetes
HOSSEIN
Family history of CAD
Former smoker
Past Medical History
Past Medical History: Other (in HPI)
Social History
Tobacco: Former Smoker
Alcohol: Occasional
Drug: None
Personal:
Living: Alone
Employment: Retired
Family History
Family History: CAD (in father)
Allergies / Home Medications
Allergy/AdvReac Type Severity Reaction Status Date / Time
atorvastatin Allergy SEE BELOW Verified 04/04/24 16:40
�Medication �Instructions �Recorded �Confirmed �Type
amlodipine 5 mg tablet 5 mg PO BID Blood Pressure 02/28/23 04/06/24 History
eplerenone 25 mg tablet 25 mg PO DAILY Lung/Breathing 02/28/23 04/06/24 History
Issues
famotidine 40 mg tablet 40 mg PO DAILY Gastrointestinal 02/28/23 04/06/24 History
Issue
pantoprazole 40 mg tablet,delayed 40 mg PO DAILY Gastrointestinal 02/28/23 04/06/24 History
release (Protonix) Issue ##0
valsartan 320 mg tablet 320 mg PO DAILY Blood Pressure 02/28/23 04/06/24 History
aspirin 81 mg chewable tablet 81 mg PO DAILY 30 days #30 tabs 03/02/23 04/06/24 Rx
hydralazine 50 mg tablet 50 mg PO BID #60 tabs 03/02/23 04/06/24 Rx
Focus Factor 1 cap PO DAILY Supplement 03/05/23 04/06/24 History
lutein 20 mg capsule 20 mg PO DAILY Supplement 03/05/23 04/06/24 History
milk thistle 175 mg tablet 175 mg PO DAILY Supplement 03/05/23 04/06/24 History
pantothenic acid (vit B5) 250 mg 250 mg PO DAILY Supplement 03/05/23 04/06/24 History
tablet
therapeutic multivitamin 1 tab PO DAILY Supplement 03/05/23 04/06/24 History
vitamin B complex 1 cap PO DAILY Supplement 03/05/23 04/06/24 History
Zeaxatine 4 mg PO DAILY Supplement 03/01/24 04/06/24 History
alfuzosin 10 mg tablet,extended 10 mg PO HS Urinary Issue 03/01/24 04/06/24 History
release 24 hr
linaclotide 145 mcg capsule 145 mcg PO DAILY Constipation 03/01/24 04/06/24 History
(Linzess)
isosorbide mononitrate 30 mg 30 mg PO DAILY #30 tabs 03/02/24 04/06/24 Rx
tablet,extended release 24 hr
apixaban 5 mg tablet (Eliquis) 5 mg PO BID #60 tabs 04/05/24 04/06/24 Rx
metoprolol succinate 25 mg 12.5 mg (1/2 x 25 mg) PO DAILY #30 04/05/24 04/06/24 Rx
tablet,extended release 24 hr tabs
rosuvastatin 20 mg tablet 20 mg PO QPM #30 tabs 04/05/24 04/06/24 Rx
Review of Systems
-
History Source: Patient
All other systems: Negative unless noted
Constitutional: No Symptoms
EENT: No Symptoms
Respiratory: No Symptoms
Cardiac: Palpitations
Abdomen/GI: No Symptoms
: No Symptoms
Musculoskeletal: No Symptoms
Skin: No Symptoms
Neurological: No Symptoms
Endocrine: No Symptoms
Hematologic/Lymphatic: No Symptoms
Physical Exam
Vital Signs
Temp Pulse Resp BP Pulse Ox
97.3 F 68 18 140/66 98
04/07/24 08:22 04/07/24 03:00 04/07/24 08:22 04/07/24 03:00 04/07/24 08:22
Lab Results
04/07/24 03:51
04/07/24 03:51
Troponin I 0.014 ng/ml 04/07/24 03:51
Nkc-V-Rxntduvemuv Pept Cancelled 04/06/24 21:43
General: Well developed, well nourished in NAD.
Neck: Supple, no JVD, HJR, carotids +2 B/L, no bruits bilaterally.
Heart: Non displaced PMI, RRR, no murmurs, No S3, S4, no rubs.
Lungs: Clear to auscultation bilaterally, no wheeze, rhonchi, rubs bilaterally,
normal expiratory phase.
Abdomen: Normal bowel sounds, soft, non-tender, non-distended.
Extremities: No clubbing, cyanosis or edema bilaterally.
Neuro: Grossly nonfocal, awake, alert and oriented x3.
Impression / Plan
-
PCP: Dr. Robles
Cardiology: Dr. Horne
Impression:
Paroxysmal atrial fibrillation on Eliquis
5 second conversion pause during March 2024 admission
CAD
RCA PCI x2 03/01/23HTN
GERD
prediabetes
HOSSEIN
Family history of CAD
Former smoker
Lexiscan nuclear stress test 03/02/2024: Perfusion images revealed a small, very mild defect in the basal inferior on rest images which normalizes on both stress and prone imaging. No scan evidence of ischemia, scar, or infarct. EF 63%.
ECHO 03/05/2023: EF 70 to 75%, mild concentric LVH, hyperdynamic LV, mildly dilated right atrium, mild TR, PAP 42 mmHg
Plan:
He was discharged 2 days ago after an admission for atrial fibrillation which spontaneously converted to sinus rhythm
He is at high risk of recurrent A-fib and will start Tikosyn which should not worsen bradycardia as patient is now sinus bradycardia in the 40s
If he fails Tikosyn therapy would be a candidate for an ablation
Will discontinue IV Cardizem with bradycardia
May need to hold Toprol if bradycardia persist
Data Reviewed
-
EKG: Tracing Personally Visualized and interpreted
Medical Tests (Nuc Med, Echo etc): Report Reviewed by me
Labs: Labs Reviewed by me
Old Records: Reviewed
--- NOTE | 2024-04-07 08:45 | PTCARENOTE ---
Received patient for 7a-7p shift. Pt AAOx3 without complaints. VSS, SB 40s-50s. Patient denies pain at this time. Cardizem gtt turned off by nightshift RN for bradycardia in 40s. Pt seen by cardiology. Medications administered as ordered. Will
continue to monitor.
[2024-04-07] MEDS: ELIQUIS 5 MG PO ×2 (08:47→19:46)
[2024-04-07] MEDS: INSPRA 25 MG PO (08:48)
[2024-04-07] MEDS: LOW STRENGTH ASPIRIN 81 MG PO (08:48)
[2024-04-07] MEDS: NORVASC 5 MG PO ×2 (08:48→19:46)
[2024-04-07] MEDS: TIKOSYN 500 MCG PO ×2 (09:03→20:58)
[2024-04-07 09:56] LABS: Troponin I < 0.012 ng/ml
[2024-04-07] MEDS: IMDUR (EXTENDED RELEASE) 30 MG PO (10:14)
[2024-04-07] MEDS: APRESOLINE 50 MG PO ×2 (10:14→22:11)
[2024-04-07] MEDS: PEPCID 40 MG PO (10:14)
[2024-04-07] MEDS: DIOVAN 320 MG PO (10:15)
--- NOTE | 2024-04-07 10:35 | W.PN.HOSP.TC ---
Today's Communication/Plan
-
Tikosyn loading
Pt remains in NSR
Assessment / Plan
Assessment / Plan
A/P: Patient is a 74y M with PMH significant for ASCVD, HTN and paroxysmal A-Fib who presents to ED complaining of palpitations, chest tightness and dyspnea.
Paroxysmal Atrial Fibrillation with Rapid Ventricular Rates
- Input of cardio appreciated
- Restarted Cardizem gtt and now transitioned to Tikosyn 500 mg q12h
- Continue other CV medications including low-dose Diovan / Eliquis / etc.
Metoprolol stopped
ASCVD
- Chest tightness this evening likely related to rate / rapid A-Fib.
- No obvious ischemic noted on EKG.
- Follow serial troponin. 0.014-->0.012
- Continue daily ASA, statin, etc.
Benign Hypertension
- Patient on muti-drug regimen for BP control.
- Continue outpatient medications with holding parameters and adjust as needed for BP control.
GERD
- Stable. Continue H2-florencia.
BPH
- Stable. Continue alfluzosin.
DVT Prophylaxis: On Eliquis
placed diet order
Code Status: Full
Anticipated Discharge: > 48 hours
Subjective/Interval History
-
Date of Service: April 07, 2024
Feels well, in good spirits
Objective Data
-
Labs:
Laboratory Results
04/06/24 04/07/24
22:17 03:51
WBC 8.6
Hgb 13.9
Hct 39.5
Plt Count 202
Sodium 133 L 137
Potassium 4.5 4.3
Chloride 101 104
Carbon Dioxide 23 22
BUN 24 H 19
Creatinine 0.9 0.8
Glucose 126 H 129 H
Calcium 9.7 9.7
Total Bilirubin 0.9
AST 34
ALT 34
Alkaline Phosphatase 50
Vital Signs:
Vital Signs
Temp Pulse Resp BP Pulse Ox
97.3 F 53 18 138/67 98
04/07/24 08:22 04/07/24 10:15 04/07/24 08:22 04/07/24 10:15 04/07/24 08:22
Review of Systems
-
History Source: Patient and Coordinated Provider
Constitutional: Denies Fever
EENT: Reports No Symptoms Reported
Respiratory: Reports No Symptoms; Denies Cough or Trouble Breathing
Cardiac: Reports No Symptoms; Denies Chest Pain (prior to admission)
Abdomen/GI: Reports No Symptoms
Genitourinary: Reports No Symptoms
Physical Exam
-
General: Well Developed, Well Nourished and No Apparent Distress
HEENT: Normocephalic, Atraumatic and Moist Mucous Membranes
Respiratory: Clear to Auscultation; Negative Wheezes, Rales or Rhonchi
Cardiac: Regular Rhythm, S1/S2 and Bradycardic
GI: Soft, Nontender and Nondistended
Musculoskeletal: No Clubbing, No Cyanosis and No Edema
Neuro: Awake, Alert and Oriented
Psych: Calm and Intact Judgement/Insight
--- NOTE | 2024-04-07 16:08 | PTCARENOTE ---
Pt reassessed, assessment unchanged from previous. VSS, SB on envelope adjuster. EKG done, troponin drawn and sent. Patient denies pain at this time. Will continue to monitor.
[2024-04-07 16:21] LABS: Troponin I < 0.012 ng/ml
[2024-04-07] MEDS: CRESTOR 20 MG PO (18:29)
[2024-04-07] MEDS: FLOMAX 0.4 MG PO (22:12)
[2024-04-08] VITALS (8 sets, daily range): BP systolic 111–169; BP diastolic 58–84; BMI 28.8
--- NOTE | 2024-04-08 00:26 | PTCARENOTE ---
Pt. remains in sinus bertha, rate mostly 50's. No complaints of CP/discomfort, VSS. QTc following dose #2 Tikosyn 474 ms. Pt. currently sleeping.
[2024-04-08] MEDS: LINZESS 145 MCG PO (07:42)
[2024-04-08] MEDS: IMDUR (EXTENDED RELEASE) 30 MG PO (09:09)
[2024-04-08] MEDS: ELIQUIS 5 MG PO ×2 (09:10→19:36)
[2024-04-08] MEDS: DIOVAN 320 MG PO (09:10)
[2024-04-08] MEDS: TIKOSYN 500 MCG PO (09:10)
[2024-04-08] MEDS: NORVASC 5 MG PO ×2 (09:10→19:36)
[2024-04-08] MEDS: INSPRA 25 MG PO (09:10)
[2024-04-08] MEDS: LOW STRENGTH ASPIRIN 81 MG PO (09:10)
[2024-04-08] MEDS: APRESOLINE 50 MG PO ×2 (09:10→19:36)
[2024-04-08] MEDS: PEPCID 40 MG PO (09:13)
--- NOTE | 2024-04-08 09:20 | PTCARENOTE ---
Assumed care of pt from prev nsg shift; Pt AAOx3 w/no c/o CP or SOB. Pt's VS stable w/HR in the 60's-70's & BP 147/58 this AM. Pt remains in SR/SB on telemetry monitoring. This RN administered dose #3 of PO Tikosyn as ordered this AM. Pt w/call jhaveri
within reach & plan of care ongoing.
[2024-04-08 12:14] LABS: Blood Urea Nitrogen 19 mg/dl (9-20); Calcium 9.4 mg/dl (8.4-10.2); Carbon Dioxide 22 mmol/L (22-30); Chloride 104 mmol/L (98-107); Estimated Creatinine Clearance 58 ml/min; Glucose 112 mg/dl (70-99); Potassium 4.2 mmol/L (3.5-5.1); Sodium 134 mmol/L (135-145); eGFR > 60.00
--- NOTE | 2024-04-08 14:59 | W.PN.HOSP.TC ---
Today's Communication/Plan
-
continue Tikosyn loading
Assessment / Plan
Assessment / Plan
A/P: Patient is a 74y M with PMH significant for ASCVD, HTN and paroxysmal A-Fib who presents to ED complaining of palpitations, chest tightness and dyspnea.
Paroxysmal Atrial Fibrillation with Rapid Ventricular Rates
- Input of cardio appreciated
- Restarted Cardizem gtt and now transitioned to Tikosyn 500 mg q12h, remains in NSR
- Continue other CV medications including low-dose Diovan / Eliquis / etc.
Metoprolol stopped
ASCVD
- Chest tightness this evening likely related to rate / rapid A-Fib.
- No obvious ischemic noted on EKG.
- Follow serial troponin. 0.014-->0.012
- Continue daily ASA, statin, etc.
Benign Hypertension
- Patient on muti-drug regimen for BP control.
- Continue outpatient medications with holding parameters and adjust as needed for BP control.
GERD
- Stable. Continue H2-florencia.
BPH
- Stable. Continue alfluzosin.
DVT Prophylaxis: On Eliquis
placed diet order
Code Status: Full
Anticipated Discharge: 24 - 48 hours
Subjective/Interval History
-
Date of Service: April 08, 2024
In good spirits
Objective Data
-
Labs:
Laboratory Results
04/08/24
11:31
Sodium 134 L
Potassium 4.2
Chloride 104
Carbon Dioxide 22
BUN 19
Creatinine 1.0
Glucose 112 H
Calcium 9.4
Vital Signs:
Vital Signs
Temp Pulse Resp BP Pulse Ox
98.2 F 75 20 148/84 98
04/08/24 12:35 04/08/24 12:35 04/08/24 12:35 04/08/24 12:35 04/08/24 12:35
I&O
04/07/24 04/08/24 04/09/24
06:59 06:59 06:59
Intake Total 480 / 480
Balance 480 / 480
Review of Systems
-
History Source: Patient and Coordinated Provider
Constitutional: Denies Fever
EENT: Reports No Symptoms Reported
Respiratory: Reports No Symptoms; Denies Cough or Trouble Breathing
Cardiac: Reports No Symptoms; Denies Chest Pain (prior to admission)
Abdomen/GI: Reports No Symptoms
Genitourinary: Reports No Symptoms
Physical Exam
-
General: Well Developed, Well Nourished and No Apparent Distress
HEENT: Normocephalic, Atraumatic and Moist Mucous Membranes
Respiratory: Clear to Auscultation; Negative Wheezes, Rales or Rhonchi
Cardiac: Regular Rhythm, S1/S2 and Bradycardic
GI: Soft, Nontender and Nondistended
Musculoskeletal: No Clubbing, No Cyanosis and No Edema
Neuro: Awake, Alert and Oriented
Psych: Calm and Intact Judgement/Insight
--- NOTE | 2024-04-08 17:22 | W.PN.CARDCBS ---
Today's Communication / Plan
-
Reduce dofetilide to 250 BID
Monitor QT/QTc via ECG 2h post dose
Monitor on telemetry
Impression / Plan
-
PCP: Dr. Robles
Cardiology: Dr. Horne
Impression:
Paroxysmal atrial fibrillation on Eliquis
5 second conversion pause during March 2024 admission
CAD
RCA PCI x2 03/01/23HTN
GERD
prediabetes
HOSSEIN
Family history of CAD
Former smoker
Lexiscan nuclear stress test 03/02/2024: Perfusion images revealed a small, very mild defect in the basal inferior on rest images which normalizes on both stress and prone imaging. No scan evidence of ischemia, scar, or infarct. EF 63%.
ECHO 03/05/2023: EF 70 to 75%, mild concentric LVH, hyperdynamic LV, mildly dilated right atrium, mild TR, PAP 42 mmHg
Plan:
He was discharged 2 days ago after an admission for atrial fibrillation which spontaneously converted to sinus rhythm
Started on dofetilide 500 mcg twice daily; mild QT prolongation most recent QT/QTc 472/453, reducing dose to 250 mcg twice daily continue to monitor QT via ECG
Hold beta-florencia, calcium channel florencia
Repeat electrolytes as needed with goal potassium greater than 4, magnesium greater than 2
Monitor on telemetry��do not remove
Progress Note - Vp Respiratory
Subjective
Date of Service: April 08, 2024
Patient seen and examined. No acute events overnight. Patient resting comfortably without complaint. Patient Nuys chest pain, shortness of breath, palpitations, lightheadedness, dizziness, or weakness. SR/SB on telemetry
Objective
Labs:
04/07/24 03:51
04/08/24 11:31
Labs
Hgb 13.9 g/dL (13.0-18.0) 04/07/24 03:51
Hct 39.5 % (39.0-52.0) 04/07/24 03:51
Plt Count 202 10^3/uL (130-400) 04/07/24 03:51
Sodium 134 mmol/L (135-145) L 04/08/24 11:31
Potassium 4.2 mmol/L (3.5-5.1) 04/08/24 11:31
BUN 19 mg/dl (9-20) 04/08/24 11:31
Creatinine 1.0 mg/dL (0.7-1.3) 04/08/24 11:31
Glucose 112 mg/dl (70-99) H 04/08/24 11:31
Troponins
04/06/24 04/07/24 04/07/24
21:43 03:51 09:11
Troponin I Cancelled 0.014 < 0.012
04/07/24
15:29
Troponin I < 0.012
Vital Signs and I&O:
Vital Signs
Temp Pulse Resp BP Pulse Ox
98.3 F 68 20 156/66 97
04/08/24 16:22 04/08/24 16:23 04/08/24 16:22 04/08/24 16:23 04/08/24 16:22
Vital Signs
Temp Pulse Resp BP Pulse Ox
98.3 F 68 20 156/66 97
04/08/24 16:22 04/08/24 16:23 04/08/24 16:22 04/08/24 16:23 04/08/24 16:22
Intake & Output
04/06/24 04/07/24 04/08/24 04/09/24
06:59 06:59 06:59 06:59
Intake Total 480 / 480 960 / 960
Balance 480 / 480 960 / 960
Physical Exam
Physical Exam
General: Well developed, well nourished in NAD.
Neck: Supple, no JVD, HJR, carotids +2 B/L, no bruits bilaterally.
Heart: Non displaced PMI, RRR, no murmurs, No S3, S4, no rubs.
Lungs: Clear to auscultation bilaterally, no wheeze, rhonchi, rubs bilaterally,
normal expiratory phase.
Abdomen: Normal bowel sounds, soft, non-tender, non-distended.
Extremities: No clubbing, cyanosis or edema bilaterally.
Neuro: Grossly nonfocal, awake, alert and oriented x3.
--- NOTE | 2024-04-08 17:48 | PTCARENOTE ---
Pt's VS stable w/HR in the 60's; Pt remains in SR on telemetry monitoring. No c/o CP or SOB. EKG 2hrs post dose #[address] Phillips decreased pt's dose from 500mcg to 250mcg starting w/his 4th dose later this evening. Plan of care
ongoing.
[2024-04-08] MEDS: CRESTOR 20 MG PO (18:46)
[2024-04-08] MEDS: TIKOSYN 250 MCG PO (20:57)
[2024-04-08] MEDS: FLOMAX 0.4 MG PO (20:57)
[2024-04-09] VITALS (9 sets, daily range): BP systolic 119–162; BP diastolic 58–74; BMI 28.7
[2024-04-09 03:40] LABS: % Basophils 0.7 % (0-2); % Eosinophils 2.5 % (0-6); % Immature Granulocytes 0.1 % (0-0.5); % Lymphocytes 23.8 % (20.5-51.1); % Monocytes 12.7 % (1.7-9.3); % Neutrophils 60.2 % (42.2-75.2); Absolute Basophils 0.1 10^3/uL (0-0.2); Absolute Eosinophils 0.2 10^3/uL (0-0.7); Absolute Lymphocytes 1.7 10^3/uL (1.2-3.4); Absolute Monocytes 0.9 10^3/uL (0.1-0.6); Absolute Neutrophils 4.4 10^3/uL (1.4-6.5); Hematocrit 36.7 % (39.0-52.0); Hemoglobin 13.2 g/dL (13.0-18.0); Mean Corpuscular Hgb 30.8 pg (27.0-31.0); Mean Corpuscular Volume 85.7 fL (80.0-94.0); Mean Platelet Volume 10.5 fL (7.4-10.4); Nucleated Red Blood Cells % 0 % (-); Platelet Count 190 10^3/uL (130-400); Red Blood Cell Count 4.28 10^6/uL (4.70-6.10); Red Cell Dist. Width 12.1 % (11.5-14.5); White Blood Cell Count 7.3 10^3/uL (4.8-10.8)
[2024-04-09 04:01] LABS: ALT (SGPT) 30 U/L (0-50); AST (SGOT) 26 U/L (17-59); Albumin 4.3 g/dl (3.5-5.0); Blood Urea Nitrogen 18 mg/dl (9-20); Carbon Dioxide 20 mmol/L (22-30); Estimated Creatinine Clearance 73 ml/min; Glucose 111 mg/dl (70-99); Total Bilirubin 0.7 mg/dl (0.2-1.3); Total Protein 6.6 g/dl (6.3-8.2); eGFR > 60.00
[2024-04-09 04:10] LABS: Alkaline Phosphatase 42 U/L (38-126); Calcium 9.4 mg/dl (8.4-10.2); Chloride 104 mmol/L (98-107); Potassium 4.4 mmol/L (3.5-5.1); Sodium 134 mmol/L (135-145)
--- NOTE | 2024-04-09 05:00 | SUR.OPER ---
Tikosyn dose #4 given F/u with EKG pre protocol. Heart monitor NSR in 60s. SBP in 160-150 and went down to 130 after blood pressure medications.
[2024-04-09] MEDS: LINZESS 145 MCG PO (06:27)
[2024-04-09] MEDS: DIOVAN 320 MG PO (08:21)
[2024-04-09] MEDS: ELIQUIS 5 MG PO ×2 (08:22→19:47)
[2024-04-09] MEDS: APRESOLINE 50 MG PO ×2 (08:22→19:48)
[2024-04-09] MEDS: LOW STRENGTH ASPIRIN 81 MG PO (08:22)
[2024-04-09] MEDS: NORVASC 5 MG PO ×2 (08:22→19:47)
[2024-04-09] MEDS: PEPCID 40 MG PO (08:22)
[2024-04-09] MEDS: IMDUR (EXTENDED RELEASE) 30 MG PO (08:22)
[2024-04-09] MEDS: INSPRA 25 MG PO (08:22)
[2024-04-09] MEDS: TIKOSYN 250 MCG PO ×2 (08:57→20:57)
--- NOTE | 2024-04-09 09:04 | PTCARENOTE ---
Patient received from restaurant shift supervisor resting comfortably in bed, AAO X 3. Patient updated to plan of care, in agreement. Medications reviewed. See work list for full assessment and interventions performed.
--- NOTE | 2024-04-09 09:31 | CM ---
Pricing on Dofetilide through the patient's [facility] is $5-6 a month. I called the patient[facility] pharmacy and it is in stock.
--- NOTE | 2024-04-09 10:06 | W.PN.CARDCBS ---
Addendum entered and electronically signed by Shahab Little MD 04/09/24 11:57:
Patient with hospital stay mid March for paroxysmal atrial fibrillation, failed cardioversion but then spontaneously reverted with 5-second pause, discharged and then readmitted with recurrent A-fib and started on dofetilide. Basom poorly earlier
this morning with discontinuation of metoprolol with increased blood pressure, then recurrent A-fib late in a.m.
PMH/PSH/SH/FH: Reviewed
Allergies: Atorvastatin
Outpatient medications: Alfuzosin, amlodipine 5 twice daily, apixaban 5 twice daily, aspirin 81 mg a day, eplerenone 25 mg a day, Pepcid, hydralazine 50 mg p.o. twice daily, isosorbide mononitrate, Linzess, metoprolol ER 12.5 mg daily, rosuvastatin
40, valsartan 320
Current medications: Tamsulosin 0.4 mg at bedtime, amlodipine 5 mg twice daily, apixaban 5 mg twice daily, aspirin 81 mg a day, eplerenone 25 mg daily, Pepcid 40 mg a day, hydralazine 50 mg p.o. twice daily, isosorbide 30 mg a day, Linzess,
metoprolol ER 12.5 mg daily, rosuvastatin 20 mg a day, valsartan 320 mg a day, dofetilide 250 mcg every 12
ROS: Reviewed
152/58, pulse 78, resp rate 18, afebrile 118.3 kg, was 120 kg on admission
Head neck exam unremarkable, heart rate is up, lungs are clear regular rate and rhythm, very soft systolic murmur left sternal border, abdomen benign extremities without clubbing cyanosis edema distal pulses intact, neuro, musculoskeletal intact
EKG today normal sinus rhythm, septal NV, QTc 462, RSR prime, LVH, left axis
Hemoglobin 13.2, white count 7.3, platelets 190, BUN and creatinine 18 and 0.8, sodium 134, potassium 4.4
Impression:
Symptomatic paroxysmal atrial fibrillation with RVR
Recent admission for Afib with RVR with failed CV in ER and then spontaneous conversion 04/04/24 until 04/05/24
Paroxysmal Afib
Chronic Eliquis OAC
5 second conversion pause during 04/04/24 until 04/05/24 admission
CAD
s/p RCA PCI x2 03/01/23HTN
GERD
prediabetes
HOSSEIN
Family history of CAD
Former smoker
Plan:
QT interval is acceptable on dofetilide, but off beta-florencia he now has recurrent A-fib. Blood pressure was also up. Will restart metoprolol at this time.
Will keep him overnight and discharge in a.m. if stable. He may need further manipulation of his antihypertensive regimen
At this point, effectiveness of dofetilide may be in question. Might need to consider amiodarone or ultimately may be best served by going directly to [facility].
Original Note:
Today's Communication / Plan
-
Restart Toprol XL 12.5 mg daily and follow along for symptoms
Outpatient EP eval
Cont Eliquis
Cont Tikosyn 250 mcg q 12 hours
Impression / Plan
-
PCP: Dr. Robles
Cardiology: Dr. Horne
Impression:
Symptomatic paroxysmal atrial fibrillation with RVR
Recent admission for Afib with RVR with failed CV in ER and then spontaneous conversion 04/04/24 until 04/05/24
Paroxysmal Afib
Chronic Eliquis OAC
5 second conversion pause during 04/04/24 until 04/05/24 admission
CAD
s/p RCA PCI x2 03/01/23
HTN
GERD
prediabetes
HOSSEIN
Family history of CAD
Former smoker
Lexiscan nuclear stress test 03/02/2024: Perfusion images revealed a small, very mild defect in the basal inferior on rest images which normalizes on both stress and prone imaging. No scan evidence of ischemia, scar, or infarct. EF 63%.
Echo 6/24/23: EF 70 to 75%, mild concentric LVH, hyperdynamic LV, mildly dilated right atrium, mild TR, PAP 42 mmHg
Plan:
-Patient was just admitted to 04/04/24 until 04/05/24 with rapid Afib. He failed attempted CV [facility] and was admitted on Cardizem gtt and then spontaneously converted and was d/c'd to home. [facility] with recurrent chest
tightness and SOB that were identical to his presenting symptoms from previous admission and he was found to be back in Afib. Patient was started on Tikosyn 500 mcg q 12 hours and dose reduced to 250 mcg q 12 hours for QTc prolongation.
-Patient with stable QTc 462 ms by ECG 04/09/24 ordered and reviewed by me, 5th dose of Tikosyn given 04/09/24 AM.
-Appreciate help of CM on checking cost and availability of Tikoysn, it should only cost him about $6 a month and is in stock at his pharmacy
-Patient with recurrent, symptomatic Afib in RVR on 04/09/24 AM. Will restart Toprol XL 12.5 mg daily. Patient had been prescribed Toprol XL at last discharge, but reported fatigue. Will observe on restarted Toprol XL for rate/rhythm control and
symptom control
-Patient will need to follow up with EP as an outpatient for ablation evaluation
-Potassium 4.4 on 04/09/24
-Recent echo 03/05/23 with preserved EF and no significant valvular disease. No need to repeat at this time.
-Continue outpatient doses of Imdur, hydralazine, and valsartan.
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
Subjective
Date of Service: April 09, 2024
He started feeling more palpitations this morning
Objective
Labs:
04/09/24 03:23
04/09/24 03:23
Labs
Hgb 13.2 g/dL (13.0-18.0) 04/09/24 03:23
Hct 36.7 % (39.0-52.0) L 04/09/24 03:23
Plt Count 190 10^3/uL (130-400) 04/09/24 03:23
Sodium 134 mmol/L (135-145) L 04/09/24 03:23
Potassium 4.4 mmol/L (3.5-5.1) 04/09/24 03:23
BUN 18 mg/dl (9-20) 04/09/24 03:23
Creatinine 0.8 mg/dL (0.7-1.3) 04/09/24 03:23
Glucose 111 mg/dl (70-99) H 04/09/24 03:23
Troponins
04/06/24 04/07/24 04/07/24
21:43 03:51 09:11
Troponin I Cancelled 0.014 < 0.012
04/07/24
15:29
Troponin I < 0.012
Vital Signs and I&O:
Vital Signs
Temp Pulse Resp BP Pulse Ox
98.1 F 125 18 162/60 97
04/09/24 07:33 04/09/24 09:50 04/09/24 08:08 04/09/24 09:50 04/09/24 08:09
Vital Signs
Temp Pulse Resp BP Pulse Ox
98.1 F 125 18 162/60 97
04/09/24 07:33 04/09/24 09:50 04/09/24 08:08 04/09/24 09:50 04/09/24 08:09
Intake & Output
04/07/24 04/08/24 04/09/24 04/10/24
06:59 06:59 06:59 06:59
Intake Total 480 / 480 1340 / 1340 150 / 150
Balance 480 / 480 1340 / 1340 150 / 150
Physical Exam
Physical Exam
GEN: AAOx3
HEENT: mmm
LUNGS: No audible wheeze
CV: SR on tele, Afib with RVR noted an hour ago on tele review
ABD: ND
EXT: No edema B/L
NEURO: Gross non-focal
SKIN: No rash
[2024-04-09] MEDS: TOPROL XL 12.5 MG PO (10:09)
--- NOTE | 2024-04-09 11:05 | CM ---
Chart reviewed. Patient is independent of ADLS, lives alone in a 1 [address], 2 [address], 0 DME. Plan is for the patient to return home. CM to follow
--- NOTE | 2024-04-09 11:27 | PTCARENOTE ---
Patient converted back to NSR. Resting comfortably, ordering lunch.
--- NOTE | 2024-04-09 16:22 | W.PN.HOSP.TC ---
Today's Communication/Plan
-
Continue dofetilide and beta-florencia. Monitor on telemetry. Follow cardiology recommendations.
Assessment / Plan
Assessment / Plan
A/P: Patient is a 74y M with PMH significant for ASCVD, HTN and paroxysmal A-Fib who presents to ED complaining of palpitations, chest tightness and dyspnea.
NAD, resting comfortably in bed
Scleral anicteric
Moist mucous membranes
No JVD
CTA bilateral
Normal S1-S2 no murmurs, irregular rate rhythm
Soft nontender nondistended bowel sounds active
No peripheral pitting edema
Moves extremities spontaneously
AAOx3
Paroxysmal Atrial Fibrillation with Rapid Ventricular Rates
- Input of cardio appreciated
- Restarted Cardizem gtt and now transitioned to Tikosyn 250 mg q12h, remains in NSR
- Continue other CV medications including low-dose Diovan / Eliquis / etc.
-Low-dose metoprolol resumed.
ASCVD
- Chest tightness this evening likely related to rate / rapid A-Fib.
- No obvious ischemic noted on EKG.
- Follow serial troponin. 0.014-->0.012
- Continue daily ASA, statin, etc.
Benign Hypertension
- Patient on muti-drug regimen for BP control.
- Continue outpatient medications with holding parameters and adjust as needed for BP control.
GERD
- Stable. Continue H2-florencia.
BPH
- Stable. Continue alfluzosin.
DVT Prophylaxis: On Eliquis
placed diet order
Code Status: Full
Anticipated Discharge: Within 24 hours
Subjective/Interval History
-
Date of Service: April 09, 2024
Seen and examined. No new complaints. No acute overnight events.
States earlier in the morning became tachycardic short of breath chest discomfort. Was noted to have a forced heart rate. Improved after receiving half dose of Lopressor.
Objective Data
-
Vital Signs:
Vital Signs
Temp Pulse Resp BP Pulse Ox
98.2 F 57 19 126/61 98
04/09/24 15:07 04/09/24 15:13 04/09/24 15:13 04/09/24 15:09 04/09/24 15:13
I&O
04/08/24 04/09/24 04/10/24
06:59 06:59 06:59
Intake Total 480 / 480 1340 / 1340 150 / 150
Balance 480 / 480 1340 / 1340 150 / 150
[2024-04-09] MEDS: CRESTOR 20 MG PO (17:10)
[2024-04-09] MEDS: FLUSH (NSS) 1 FLUSH IV (19:49)
--- NOTE | 2024-04-09 20:38 | PTCARENOTE ---
Patient received at change of shift. Sinus bertha/ sinus rhythm. Next dose of Tikosyn due at 2100. Call jhaveri within reach.
[2024-04-09] MEDS: FLOMAX 0.4 MG PO (20:58)
[2024-04-10 03:32] VITALS: BP 144/68
--- NOTE | 2024-04-10 04:57 | PTCARENOTE ---
Patient has remained in sinus rhythm throughout the night. No complaints voiced.
[2024-04-10 07:37] VITALS: BP 144/70
[2024-04-10] MEDS: LOW STRENGTH ASPIRIN 81 MG PO (07:47)
[2024-04-10] MEDS: TOPROL XL 12.5 MG PO (07:47)
[2024-04-10] MEDS: APRESOLINE 50 MG PO (07:47)
[2024-04-10] MEDS: ELIQUIS 5 MG PO (07:48)
[2024-04-10] MEDS: IMDUR (EXTENDED RELEASE) 30 MG PO (07:48)
[2024-04-10] MEDS: INSPRA 25 MG PO (07:48)
[2024-04-10] MEDS: TIKOSYN 250 MCG PO (07:48)
[2024-04-10] MEDS: NORVASC 5 MG PO (07:48)
[2024-04-10] MEDS: PEPCID 40 MG PO (07:49)
[2024-04-10] MEDS: DIOVAN 320 MG PO (07:49)
--- NOTE | 2024-04-10 10:41 | CM ---
Chart reviewed. Patient is independent of ADLS, lives alone in a 1 [address], 2 [facility], 0 DME. I confirmed with the patient's [facility] pharmacy and they have Dofetilide 250 mcq in stock. Plan is for the patient to return home. CM to follow
--- NOTE | 2024-04-10 10:59 | W.PN.CARDCBS ---
Addendum entered and electronically signed by Felix Jose MD 04/10/24 15:53:
The Masseur/Masseuse's note was reviewed and I agree with the note.
Plan reviewed with WILLIAM Sow, but patient discharged prior to me being able to evaluate the patient
Original Note:
Today's Communication / Plan
-
D/C to home today on Toprol XL and Tikosyn with the plan for outpatient EP eval for ablation
Impression / Plan
-
PCP: Dr. Robles
Cardiology: Dr. Horne
Impression:
Symptomatic paroxysmal atrial fibrillation with RVR
Recent admission for Afib with RVR with failed CV in ER and then spontaneous conversion 04/04/24 until 04/05/24
Paroxysmal Afib
Chronic Eliquis OAC
5 second conversion pause during 04/04/24 until 04/05/24 admission
CAD
s/p RCA PCI x2 03/01/23
HTN
GERD
prediabetes
HOSSEIN
Family history of CAD
Former smoker
Lexiscan nuclear stress test 03/02/2024: Perfusion images revealed a small, very mild defect in the basal inferior on rest images which normalizes on both stress and prone imaging. No scan evidence of ischemia, scar, or infarct. EF 63%.
Echo 03/05/23: EF 70 to 75%, mild concentric LVH, hyperdynamic LV, mildly dilated right atrium, mild TR, PAP 42 mmHg
Plan:
-No Afib on tele review overnight performed by me. He also denies recurrence of palpitations. He has been highly symptomatic with recurrences of Afib. He feels he has improved following restart of Toprol XL on 04/09/24 and despite previous issues
with fatigue while taking Toprol XL.
-Patient was just admitted to 04/04/24 until 04/05/24 with rapid Afib. He failed attempted CV in [facility] and was admitted on Cardizem gtt and then spontaneously converted and was d/c'd to home. Patient returned to [facility] on 04/07/24 with recurrent chest
tightness and SOB that were identical to his presenting symptoms from previous admission and he was found to be back in Afib. Patient was started on Tikosyn 500 mcg q 12 hours and dose reduced to 250 mcg q 12 hours for QTc prolongation.
-QTc stable following reduction in dose.
-Appreciate help of CM on checking cost and availability of Tikoysn, it should only cost him about $6 a month and is in stock at his pharmacy
-Patient will need to follow up with EP as an outpatient for ablation evaluation
-Recent echo 03/05/23 with preserved EF and no significant valvular disease. No need to repeat at this time.
-Continue outpatient doses of Imdur, hydralazine, and valsartan.
-Stable for d/c to home 04/10/24
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
Subjective
Date of Service: April 10, 2024
He feels well, no Afib overnight, he wants to go home
Objective
Labs:
04/09/24 03:23
04/09/24 03:23
Labs
Hgb 13.2 g/dL (13.0-18.0) 04/09/24 03:23
Hct 36.7 % (39.0-52.0) L 04/09/24 03:23
Plt Count 190 10^3/uL (130-400) 04/09/24 03:23
Sodium 134 mmol/L (135-145) L 04/09/24 03:23
Potassium 4.4 mmol/L (3.5-5.1) 04/09/24 03:23
BUN 18 mg/dl (9-20) 04/09/24 03:23
Creatinine 0.8 mg/dL (0.7-1.3) 04/09/24 03:23
Glucose 111 mg/dl (70-99) H 04/09/24 03:23
Troponins
04/07/24
15:29
Troponin I < 0.012
Vital Signs and I&O:
Vital Signs
Temp Pulse Resp BP Pulse Ox
97.7 F 65 16 144/70 98
04/10/24 07:59 04/10/24 07:37 04/10/24 07:59 04/10/24 07:37 04/10/24 07:59
Vital Signs
Temp Pulse Resp BP Pulse Ox
97.7 F 65 16 144/70 98
04/10/24 07:59 04/10/24 07:37 04/10/24 07:59 04/10/24 07:37 04/10/24 07:59
Intake & Output
04/08/24 04/09/24 04/10/24 04/11/24
06:59 06:59 06:59 06:59
Intake Total 480 / 480 1340 / 1340 150 / 150
Balance 480 / 480 1340 / 1340 150 / 150
Physical Exam
Physical Exam
GEN: AAOx3
HEENT: mmm
LUNGS: No audible wheeze
CV: SR on tele
ABD: ND
EXT: No edema B/L
NEURO: Gross non-focal
SKIN: No rash
[2024-04-10 11:49] VITALS: BP 115/49
--- NOTE | 2024-04-10 14:10 | W.PN.HOSP.TC ---
Today's Communication/Plan
-
dc home
Assessment / Plan
Assessment / Plan
A/P: Patient is a 74y M with PMH significant for ASCVD, HTN and paroxysmal A-Fib who presents to ED complaining of palpitations, chest tightness and dyspnea.
NAD, resting comfortably in bed
Scleral anicteric
Moist mucous membranes
No JVD
CTA bilateral
Normal S1-S2 no murmurs, regular rate rhythm
Soft nontender nondistended bowel sounds active
No peripheral pitting edema
Moves extremities spontaneously
AAOx3
Paroxysmal Atrial Fibrillation with Rapid Ventricular Rates
- Input of cardio appreciated
- Restarted Cardizem gtt and now transitioned to Tikosyn 250 mg q12h, remains in NSR
- Continue other CV medications including low-dose Diovan / Eliquis / etc.
-Low-dose metoprolol resumed.
ASCVD
- Chest tightness this evening likely related to rate / rapid A-Fib.
- No obvious ischemic noted on EKG.
- Follow serial troponin. 0.014-->0.012
- Continue daily ASA, statin, etc.
Benign Hypertension
- Patient on muti-drug regimen for BP control.
- Continue outpatient medications with holding parameters and adjust as needed for BP control.
GERD
- Stable. Continue H2-florencia.
BPH
- Stable. Continue alfluzosin.
DVT Prophylaxis: On Eliquis
placed diet order
Code Status: Full
Anticipated Discharge: Today
Subjective/Interval History
-
Date of Service: April 10, 2024
Seen and examined. Telemetry reviewed without evidence of RVR. Back in sinus. Continue Tikosyn and half dose metoprolol. Discharge home. Outpatient cardiology follow-up. Should be evaluated for outpatient ablation study.
Objective Data
-
Vital Signs:
Vital Signs
Temp Pulse Resp BP Pulse Ox
98.4 F 59 14 115/49 97
04/10/24 11:48 04/10/24 11:49 04/10/24 11:48 04/10/24 11:49 04/10/24 11:48
I&O
04/09/24 04/10/24 04/11/24
06:59 06:59 06:59
Intake Total 1340 / 1340 150 / 150
Balance 1340 / 1340 150 / 150
--- NOTE | 2024-04-10 14:17 | W.DCSUMMARY ---
Discharge Summary
Discharge Data
Date of Admission: 04/07/24
Date of Discharge: 04/10/24
-
Pending Results: No
Hospital Course
74y M with PMH significant for ASCVD, HTN and A-Fib with hospitalization 04/04 - 04/05 who presented with chest tightness, palpitation, dyspnea and diaphoresis found to be in Afib RVR. Started on a cardizem gtt. Was seen by cardiology and eventually
transition to Tikosyn. Metoprolol was stopped at that time however went back into rapid A-fib. Was resumed on half dose metoprolol with improved rate control.
Discharge Plan
-
Patient Disposition: Home (Routine Discharge)
Discharge Diagnosis/Procedures: atrial fibrillation with RVR
Condition: Good
Diet: Low Sodium
Activity: As tolerated
Driving Restrictions: As prior to admission
Bathing Restrictions: None
Referrals:
Kamari Robles MD [Family Provider] -
Saman Owen DO [Active] -
Additional Discharge Medication Instructions: Presented with chest tightness, palpitation, dyspnea and diaphoresis found to be in Afib RVR. Started on a cardizem gtt. Was seen by cardiology and eventually transition to Tikosyn. Metoprolol was
stopped at that time however went back into rapid A-fib. Was resumed on half dose metoprolol with improved rate control.
-START taking Tikoysn (dofetilide) 250 mcg every 12 hours
-Take Toprol XL (metoprolol succinate) 12.5 mg (1/2 of a 25 mg tablet) once a day, but if you have a recurrence of palpitations you can take an extra full tablet a day.
Outpatient cardiology and PCP follow up
Prescriptions:
New
dofetilide 250 mcg Capsule
250 mcg PO Q12H Qty: 60 11RF
Continued
famotidine 40 mg Tablet
40 mg PO DAILY
amlodipine 5 mg Tablet
5 mg PO BID
pantoprazole [Protonix] 40 mg Tablet,Delayed Release (Dr/Ec)
40 mg PO DAILY Qty: 0
Rx Instructions:
Patient states or as needed
valsartan 320 mg Tablet
320 mg PO DAILY
eplerenone 25 mg Tablet
25 mg PO DAILY
aspirin 81 mg Tablet,Chewable
81 mg PO DAILY 30 Days Qty: 30 0RF
hydralazine 50 mg Tablet
50 mg PO BID Qty: 60 0RF
milk thistle 175 mg Tablet
175 mg PO DAILY
therapeutic multivitamin Tablet
1 tab PO DAILY
pantothenic acid (vit B5) 250 mg Tablet
250 mg PO DAILY
vitamin B complex Capsule
1 cap PO DAILY
lutein 20 mg Capsule
20 mg PO DAILY
Focus Factor
1 cap PO DAILY
alfuzosin 10 mg tablet extended release 24 hr
10 mg PO HS
Linzess 145 mcg capsule
145 mcg PO DAILY
Zeaxatine
4 mg PO DAILY
isosorbide mononitrate 30 mg Tablet Extended Release 24 Hr
30 mg PO DAILY Qty: 30 0RF
Eliquis 5 mg Tablet
5 mg PO BID Qty: 60 3RF
metoprolol succinate 25 mg Tablet Extended Release 24 Hr
12.5 mg PO DAILY Qty: 30 2RF
rosuvastatin 20 mg Tablet
20 mg PO QPM Qty: 30 0RF
Discharge Orders:
Discharge Patient (As Directed); Ordered 04/10/24
Ordered By: Yung Gutiérrez
Care Plan Goals
Care Plan Goals:
Problem: Readiness for enhanced knowledge related to diagnosis and treatment plan
Goal: Understand your diagnosis and treatment plan needs, including medications if applicable.
Instructions: Know your diagnosis, underlying causes and treatment plan options, including medications if applicable. Consult with your health care team to learn about your diagnosis and treatment plan, including medications if applicable.
Discharge Date and Time
Print Language: UZBEK
== END 2024-04-10 15:03 | disposition home or self-care (01) | DRG 310 ==
LOC: IVU 02:08
PROVIDERS: Emergency Medicine; Internal Medicine; Internal Medicine Cardiovascular Disease; ADMITTING PHYSICIAN Hospitalist; ATTENDING PHYSICIAN Hospitalist; CONSULT PHYSICIAN Internal Medicine Cardiovascular Disease; EMERGENCY PHYSICIAN Emergency Medicine; FAMILY PHYSICIAN Internal Medicine
PROC: 3E0DXRZ Introduction of Antiarrhythmic into Mouth and Pharynx, External Approach (ICD-10-PCS; 2024-04-07)
DX: I48.0 Paroxysmal atrial fibrillation (principal); R00.2 Palpitations; F41.9 Anxiety disorder, unspecified; G47.33 Obstructive sleep apnea (adult) (pediatric); I10 Essential (primary) hypertension; E78.5 Hyperlipidemia, unspecified; N40.0 Benign prostatic hyperplasia without lower urinary tract symptoms; I25.10 Atherosclerotic heart disease of native coronary artery without angina pectoris; K21.9 Gastro-esophageal reflux disease without esophagitis; R73.03 Prediabetes; Z79.01 Long term (current) use of anticoagulants; Z79.82 Long term (current) use of aspirin; Z95.5 Presence of coronary angioplasty implant and graft; Z87.891 Personal history of nicotine dependence; Z88.8 Allergy status to other drugs, medicaments and biological substances; Z82.49 Family history of ischemic heart disease and other diseases of the circulatory system
CPT/HCPCS: 80048; 80053; 84484; 85025; 85027; 93005; 96365; 96366; 99291

== ENCOUNTER 2024-05-25 05:55 | Day surgery (SDC) | payer MEDICARE, OTHER, SELFPAY ==
[2024-05-10 10:48] VITALS: BMI 29.9
[2024-05-25] VITALS (11 sets, daily range): BP systolic 120–162; BP diastolic 37–91; BMI 28.3
--- NOTE | 2024-05-25 07:56 | ITS.CL.ABL ---
Product Support Sales Representative - Ablation
Ablation
Procedure Report:
Primary Accounting Manager Controller: Romario Horne MD
Procedure Date: 05/25/2024
Patient History:
Patient is a pleasant 74-year-old male with a past medical history significant for sleep apnea, CAD status post PCI 2022, and excessive anemia, hypertension, and symptomatic paroxysmal atrial fibrillation.
See H&P for complete details.
Indication:
Symptomatic paroxysmal atrial fibrillation
Recurrence despite antiarrhythmic medical therapy and cardioversion
Arrhythmia Specific History:
Prior Medical Therapies for Rate and Rhythm Control:
X Beta-florencia
[ ] Calcium channel-florencia
[ ] Amiodarone
[ ] Dronederone
[ ] Sotalol
[ ] Flecainide
X Dofetilide
X Options limited by bradycardia
[ ] Options limited by comorbid renal disease
Prior Procedural Therapies for AF/AFL:
X Cardioversion
[ ] Pulmonary Vein Isolation
[ ] Posterior Wall Isolation
[ ] Additional lines (Specify)
[ ] Surgical Drummond-MAZE or PVI (Specify)
Procedure Performed:
X AF ablation procedure (53202) -- includes LA/CS pacing, trans-septal, 3D mapping, + ICE
[ ] +IV drug (01865)
[ ] +Other Arrhythmia (09376)
[ ] +Other AF Line/ablation (28379)
Risks and expected recovery has been explained in detail. Alternative options have been explored, and in a shared-decision making fashion we have decided that this was the most appropriate procedure.
Method
NPO status confirmed. Grounding pad applied. Defibrillator pads applied. Continuous surface ECG, pulse oximetry, and blood pressure were monitored. Procedure was performed under general anesthesia, with anesthesia services.
Both groins were clipped, prepped with Chloraprep, and draped in sterile fashion. Time out was called. Local anesthesia administered with bupivacaine. The right and left femoral veins were accessed for catheter placement, using ultrasound guidance,
micro-puncture needle/wire, and modified seldinger technique. 3 sheaths were placed. The following catheters were used:
[ ] Tacticath SE (D/F Curve) ablation catheter
X Viewflex 9Fr ICE catheter
X Inquiry decapolar 6Fr diagnostic catheter
[ ] CRD Hex 6Fr
[ ] Arctic Front Advance Cryoballoon ([ ]28mm[ ]23mm)
[ ] Achieve Advance mapping catheter ([ ]15mm[ ]20mm)
X FlexCath Contour 10 Fr with PulseSelect PFA Catheter
X Advisor HD Grid Mapping Catheter, SE
[ ] [employer] AcuNav 8 Fr ICE catheter
[ ]Other: [ ]
Intracardiac ultrasound (ICE) was carefully advanced into the right atrium to guide sheath placement over a J-wire, catheter placement, guide trans-septal puncture, identify potential complications, identify anatomic structures and ensure proper
contact between ablation catheter and tissue. A trace posterior pericardial effusion was noted behind the LV which remained unchanged at the start, during, at completion of case.
Heparin was given prior to trans-septal puncture. Heparin was given to achieve and maintain a target ACT of 300-400 seconds throughout the procedure.
Trans-septal access was performed under ICE guidance. The trans-septal puncture was performed with a SafeSept wire through a Brockenbrough needle assembly through the steerable sheath. The wire was visualized as it entered the LSPV and system
advanced under ICE guidance and fluoroscopy into the LA. The Brockenbrough needle assembly, SafeSept wire and sheath dilator were removed under negative pressure. LA pressure was measured and recorded.
ICE and 3D mapping was performed to identify relevant cardiac structures. A careful 3D map was created to assess for regions of low-voltage and abnormal electrogram signals using HD grid mapping catheter and PulseSelect catheter. Additional mapping
was performed as outlined below.
Prior to ablation, glycopyrrolate was provided. PulseSelect catheter was advanced over J-wire to the ostium of each vein. Pulmonary vein isolation was performed with ostial and antral lesions in a circumferential manner. Contact was visualized via
EAM, ICE, fluoroscopy, and EGM signals. Following completion of ablation lesions, a post-ablation voltage/activation map was performed in sinus rhythm. Entrance and exit block were confirmed for each vein.
Catheter and sheath were removed from the left atrium and post-ablation intracardiac echo evaluation was consistent with pre-ablation with no changes and no pericardial effusion and there is no left atrial thrombus or left ventricle thrombus seen.
Electrophysiology study was performed. Hemostasis was obtained with Vascade for each sheath and with manual pressure. Protamine was used for reversal.
Estimated Blood Loss
5 mL
Complications
None
Fluoroscopy: 6.5 minutes; 73.29 mGy; DAP 7.68
Baseline Intervals:
Rhythm: Sinus bradycardia
AK: 186 ms
QRS: 111 ms
QT: 456 ms
QTc: 425 ms
A-A: 1159 ms
R-R: 1159 ms
Post-Procedure Intervals:
AK: 170 ms
QRS: 111 ms
QT: 457 ms
QTc: 407 ms
A-A: 1261 ms
R-R: 1261 ms
AVWB: 380 ms
AERP: 600/330 ms
Recommendations
- Bedrest with straight-leg precautions as ordered
- Anticipate same day discharge if patient meeting clinical metrics
- Resume home medications as indicated
- Ok to resume anticoagulation tonight if patient and groin sites stable
- PPI daily for 30 days
- Continue Dofetilide, goal for discontinuation at 3 mo jarrod
- Plan for follow-up in office in 3 mo with EP LIANNE at [facility] and with Dr Horne as scheduled
Saman Owen DO
Clinical Cardiac Corporate Safety Coordinator
cc: Flash Horne MD
[2024-05-25 08:47] LABS: ACT-LR - POC 294 Seconds (116-155)
[2024-05-25 09:03] LABS: ACT-LR - POC 335 Seconds (116-155)
[2024-05-25 09:29] LABS: ACT-LR - POC 356 Seconds (116-155)
[2024-05-25 09:54] LABS: ACT-LR - POC 165 Seconds (116-155)
[2024-05-25] MEDS: TYLENOL 650 MG PO (11:09)
--- NOTE | 2024-05-25 12:57 | W.PN.UPDATE ---
Update Note
Progress Note Update
74 yo WM s/p PVI/PFA (same day). He feels good, mild chest discomfort, no sob, kenny diet, voiding, amb w/o dizziness, EKG SB, R fem site c/d/i no HT, soft. He will continue Eliquis dose tonight at home. He will take PPI daily for 30 days. He will
continue dofetilide. Activity restrictions reviewed. He will f/u DCA 3 mo and continue cardiac care with dr. Horne. He is for d/c home after 1pm.
74-year-old male with a past medical history significant for sleep apnea, CAD status post PCI 2022, and excessive anemia, hypertension, and symptomatic paroxysmal atrial fibrillation.
Indication:
Symptomatic paroxysmal atrial fibrillation
Recurrence despite antiarrhythmic medical therapy and cardioversion
== END 2024-05-25 13:05 | disposition home or self-care (01) ==
LOC: CATH 05:55
PROVIDERS: ATTENDING PHYSICIAN Internal Medicine Cardiovascular Disease; FAMILY PHYSICIAN Internal Medicine; OTHER PHYSICIAN Internal Medicine Interventional Cardiology
DX: I48.0 Paroxysmal atrial fibrillation (principal); I10 Essential (primary) hypertension; Z95.5 Presence of coronary angioplasty implant and graft; I25.10 Atherosclerotic heart disease of native coronary artery without angina pectoris; G47.30 Sleep apnea, unspecified; D64.9 Anemia, unspecified; Z79.01 Long term (current) use of anticoagulants; Z79.82 Long term (current) use of aspirin; Z79.899 Other long term (current) drug therapy
CPT/HCPCS: C1732; C1733; C1894; C1769; 85347; 86900; 86901; 93005; 93656; C1760